=== PATIENT | male | born 1960 | race Caucasian/White ===

== ENCOUNTER 2019-06-23 08:30 | Inpatient (IN) | payer OTHER ==
[~2019-06-23] VITALS: Ht 170.2 cm; Wt 64.9 kg
[2019-06-23 08:33] VITALS: BP 127/73
[2019-06-23] MEDS ORDERED: NACL 0.9% 500 ML IV SCH (08:54)
[2019-06-23] MEDS ORDERED: LISI10TA11 PO (08:55)
[2019-06-23] MEDS ORDERED: GUAI-646 PO (08:55)
[2019-06-23] MEDS ORDERED: SULF-59 PO (08:55)
[2019-06-23] MEDS ORDERED: METF1TAB34 PO (08:55)
[2019-06-23] MEDS ORDERED: GLIP10TA3 PO (08:55)
[2019-06-23] MEDS ORDERED: SIMV10TA1 PO (08:55)
[2019-06-23] MEDS ORDERED: METF850T PO (08:55)
--- NOTE | 2019-06-23 08:56 | NUR ---
Patient ambulated to bed 10. RN evaluating patient at bedside.
--- NOTE | 2019-06-23 09:02 | NUR ---
Dr. Waller evaluating patient at bedside.
--- NOTE | 2019-06-23 09:18 | NUR ---
automotive refinish technician at bedside.
[2019-06-23 09:33] LABS: BASOPHILS # (AUTO) 0.1 K/uL (0.00-0.22); BASOPHILS % (AUTO) 0.7 % (0.0-2.0); EOSINOPHILS % (AUTO) 0.3 % (0.0-4.0); HEMATOCRIT 32.8 % (36-52); HEMOGLOBIN 10.9 g/dL (12.0-18.0); LYMPHOCYTES # (AUTO) 1.1 K/uL (2.0-11.5); LYMPHOCYTES % (AUTO) 10.6 % (20.5-51.1); MEAN CORPUSCULAR HEMOGLOBIN 26 pg (27-31); MEAN CORPUSCULAR HGB CONC 33 g/dL (33-37); MEAN CORPUSCULAR VOLUME 78.8 fL (80-94); MONOCYTES # (AUTO) 1.7 K/uL (0.8-1.0); MONOCYTES % (AUTO) 16.1 % (1.7-9.3); NEUTROPHILS # (AUTO) 7.8 K/uL (1.8-7.7); NEUTROPHILS % (AUTO) 72.3 % (42.2-75.2); PLATELET COUNT (AUTO) 420 K/uL (140-450); RED BLOOD CELL COUNT(AUTO) 4.16 MIL/uL (4.20-6.10); WHITE BLOOD COUNT (AUTO) 10.8 K/uL (4.8-10.8)
--- NOTE | 2019-06-23 09:37 | NUR ---
C/O LEFT SIDED CHEST PAIN, LEFT UPPER BACK PAIN X 2 DAYS. UNPROVOKED. C/O OF NAUSEA, DIZZINESS, AND LETHARGY. RIGHT SECOND DIGIT TIP BLACKENED DISCOLORATION. <3 SECS CAP REFILL. PATIENT ADMITS TO BEING NONCOMPLIANT WITH TAKING MEDICATION.
[2019-06-23 09:45] LABS: PROTHROMBIN TIME 10.8 secs (10.8-13.4)
[2019-06-23 09:55] LABS: ANION GAP 10.4 (8-16); CARBON DIOXIDE 28.8 mmol/L (21-32); CREATININE 0.8 mg/dL (0.7-1.3); POTASSIUM 4.2 mmol/L (3.5-5.1)
[2019-06-23 10:18] LABS: ALBUMIN 2.4 g/dL (3.4-5.0); TOTAL BILIRUBIN 0.5 mg/dL (0.0-1.0)
[2019-06-23] MEDS ORDERED: PIPERACILLIN/TAZOBACTAM 3.375 GM in DEXTROSE 5% 50 ML IV ONE (11:00)
[2019-06-23] MEDS ORDERED: PIPERACILLIN/TAZOBACTAM 3.375 GM VIAL IV ONE (11:46)
[2019-06-23] MEDS ORDERED: ASPIRIN 81 MG TAB.CHEW PO ONE (12:05)
[2019-06-23 12:17] LABS: APPEARANCE,URINE CLEAR (CLEAR); BILIRUBIN,URINE NEGATIVE (NEGATIVE); BLOOD, URINE NEGATIVE (NEGATIVE); COLOR,URINE YELLOW (YELLOW); LEUKOCYTE ESTERASE ,URINE NEGATIVE (NEGATIVE); NITRITE, URINE NEGATIVE (NEGATIVE); UGLUCOSE NEGATIVE (NEGATIVE)
--- NOTE | 2019-06-23 12:22 | NUR ---
CT W CONTRAST CONSENT SIGNED BY PT---CT AWARE
--- NOTE | 2019-06-23 12:57 | NUR ---
PT BACK FROM CT
[2019-06-23 13:00] VITALS: BP 156/92
--- NOTE | 2019-06-23 13:00 | NUR ---
RECEIVED ENDORSEMENT FROM ED NURSE [facility]. PATIENT IS AAOX4, MAORI SPEAKING. PATIENT AMBULATED TO BED. RESPIRATIONS ARE EVEN AND UNLABORED ON ROOM AIR. PATIENT DENIES ANY PAIN AT THIS TIME. RIGHT AC 18G IV INTACT AND SL. PLAN OF CARE WAS REVIEWED WITH PATIENT, PATIENT VERBALIZED UNDERSTANDING. SAFETY MEASURES IN PLACE, CALL LIGHT WITHIN REACH. ASKED [facility] TO TAKE A PIC OF OPEN WOUND, [facility] SAID HE WOULD BE BACK TO TAKE IT. CHARGE NURSE KAROL IS AWARE.
--- NOTE | 2019-06-23 13:17 | NUR ---
Pt report given to KYM MARINELLI. Transfer of care at this time.
--- NOTE | 2019-06-23 15:20 | NUR ---
PATIENT RESTING IN BED. FAMILY IS PRESENT AT THE BEDSIDE. NO OTHER NEEDS AT THIS TIME.
[2019-06-23 16:00] VITALS: BP 156/85
[2019-06-23] MEDS ORDERED: VANCOMYCIN PER PHARMACY MC PRN (16:05)
--- NOTE | 2019-06-23 16:12 | NUR ---
PER ER, PICTURE WAS TAKEN THERE. WILL RETAKE.
--- NOTE | 2019-06-23 16:30 | NUR ---
WOUND PHOTO TAKEN. PATIENT IS RESTING NO OTHER NEEDS AT THIS TIME. DENIES ANY PAIN AT THIS TIME, WILL CONTINUE TO MONITOR.
[2019-06-23] MEDS: NACL 0.45% 1,000 ML IV SCH (17:06)
--- NOTE | 2019-06-23 17:06 | NUR ---
ADMINISTERED SCHEDULED MEDICATIONS. PATIENT TOLERATED WELL. NO OTHER NEEDS AT THIS TIME, WILL CONTINUE TO MONITOR.
[2019-06-23] MEDS: VANCOMYCIN 1,000 MG in DEXTROSE 5% 250 ML IV SCH (17:07)
--- NOTE | 2019-06-23 19:28 | NUR ---
ENDORSED TO GIS COORDINATOR NURSE ZAIRE FOR CONTINUITY OF CARE. PATIENT IS STABLE AT THIS TIME.
--- NOTE | 2019-06-23 19:28 | NUR ---
RECIEVED PT .AAOX4 ,NID , IV SITE INTACT AND PATENT , PLAN OF CARE DISCUSSED AND VERBALIZE UNDERSTANDING , BED IN LOW POSITION , CALL LIGHT WITHIN REACH , SIDERAILS UP X2 , RELATIVES AT BED SIDE , NO COMPLAIN MADE AT THIS TIME , O2 SAT 96%. WILL CONT. TO MONITOR.
[2019-06-23 20:00] VITALS: BP 122/80
[2019-06-23] MEDS: BLOOD GLUCOSE MONITORING 1 DEV DEV FS SCH (21:00)
--- NOTE | 2019-06-23 22:00 | NUR ---
MADE ROUNDS , RESP. EVEN AND UNLABORED , NO COMPLAIN MADE AT THIS TIME. CALL LIGHT WITHIN REACH.
[2019-06-23] MEDS: PIPERACILLIN/TAZOBACTAM 3.375 GM in DEXTROSE 5% 50 ML IV SCH (22:08)
[2019-06-24] VITALS: BP 125/82
--- NOTE | 2019-06-24 | NUR ---
MADE ROUNDS , RESP. EVEN AND UNLABORED , NO COMPLAIN MADE AT THIS TIME , CALL LIGHT WITHIN REACH.
[2019-06-24 04:00] VITALS: BP 122/80
--- NOTE | 2019-06-24 04:00 | NUR ---
MADE ROUNDS , RESP EVEN AND UNLABORED , NO COMPLAIN MADE , CALL LIGHT WITHIN REACH.
[2019-06-24] MEDS: NACL 0.45% 1,000 ML IV SCH ×3 (05:25→18:45)
[2019-06-24] MEDS: VANCOMYCIN 1,000 MG in DEXTROSE 5% 250 ML IV SCH ×2 (05:44→18:25)
[2019-06-24] MEDS: BLOOD GLUCOSE MONITORING 1 DEV DEV FS SCH ×4 (06:52→21:24)
--- NOTE | 2019-06-24 07:00 | NUR ---
ENDORSED TO AM SHIFT WITH STABLE CONDITION , STILL FOR SPUTUM COLLECTION.
[2019-06-24] MEDS: PIPERACILLIN/TAZOBACTAM 3.375 GM in DEXTROSE 5% 50 ML IV SCH ×6 (07:53→23:52)
[2019-06-24 08:00] VITALS: BP 139/79
--- NOTE | 2019-06-24 08:49 | NUR ---
PATIENT HAS BEEN SCREENED AND CATEGORIZED HIGH NUTRITION RISK. PATIENT WILL BE SEEN WITHIN 1-2 DAYS OF ADMISSION. 06/24/19-06/25/[address]
--- NOTE | 2019-06-24 09:00 | NUR ---
PATIENT ABLE TO COUGH UP PHLEGM FOR AFB SPUTUM SMEAR. AFB SPUTUM X1 COLLECTED AT THIS TIME, 2 MORE REMAINING, DAILY PER MD ORDERS.
[2019-06-24 12:00] VITALS: BP 162/91
[2019-06-24] MEDS: INSULIN LISPRO SLIDING SCALE 100 UNITS/ML VIAL SUBQ PRN ×3 (12:56→21:27)
--- NOTE | 2019-06-24 12:59 | NUR ---
PATIENT LYING DOWN IN BED WATCHING TV. NO DISTRESS NOTED. DENIES ANY PAIN. SCHEDULED MEDICATIONS DUE GIVEN. WILL CONTINUE TO MONITOR.
[2019-06-24] MEDS ORDERED: LISINOPRIL 10 MG TAB PO SCH (13:02)
--- NOTE | 2019-06-24 14:00 | NUR ---
CALLED DR VEGA'S OFFICE, , SPOKE TO JEROD, FOLLOW-UP APPOINTMENT MADE ON 07/03/19 AT 1PM AT [address] [place] [id number]. COPY OF APPOINTMENT GIVEN TO PATIENT, VERBALIZED UNDERSTANDING.
--- NOTE | 2019-06-24 14:18 | NUR ---
SCHEDULED MEDICATIONS DUE GIVEN. CONDITION UNCHANGED. WILL CONTINUE TO MONITOR.
--- NOTE | 2019-06-24 15:56 | NUR ---
06/24/19 RD INITIAL ASSESSMENT COMPLETED PLEASE REFER TO NUTRITION ASSESSMENT UNDER CARE ACTIVITY FOR ESTIMATED NUTRITIONAL NEEDS. 1. [facility] TOLERATED 2. PROVIDED NURSE THE [facility] HANDOUT TO PROVIDE TO PATIENT 3. RD TO FOLLOW-UP 3-5 DAYS, MODERATE RISK LUIZ [address]
[2019-06-24 16:00] VITALS: BP 133/74
--- NOTE | 2019-06-24 17:26 | NUR ---
SCHEDULED MEDICATIONS DUE GIVEN. CONDITION UNCHANGED. WILL CONTINUE TO MONITOR.
--- NOTE | 2019-06-24 18:25 | NUR ---
PATIENT AMBULATED TO BATHROOM AND BACK TO BED. SCHEDULED MEDICATIONS DUE GIVEN. WILL CONTINUE TO MONITOR.
--- NOTE | 2019-06-24 19:32 | NUR ---
GAVE REPORT TO LAND MANAGEMENT SUPERVISOR NURSE FOR CONTINUITY OF CARE. PATIENT IN STABLE CONDITION.
--- NOTE | 2019-06-24 19:33 | NUR ---
RECEIVED REPORT FROM AM NURSE. PT SITTING UP IN BED, AWAKE, ALERT AND ORIENTED. VISIBLE CHEST RISE AND FALL ON ROOM AIR WITH NO NOTED DISTRESS. LEFT FOREARM 18G INTACT AND INFUSING WELL. PT ON AIRBORN PRECAUTIONS. PT FAMILY AT BEDSIDE. FAMILY EDUCATED ON AIRBORN PRECAUTIONS. PT HAS NON-INTACT SKIN, S/P DEBRIDEMENT ON RIGHT INDEX FINGER. PT AMBULATORY, SAFETY MEASURES IN PLACE. CALL LIGHT WITHIN REACH.
[2019-06-24 20:20] VITALS: BP 121/70
--- NOTE | 2019-06-24 21:27 | NUR ---
BLOOD GLUCOSE 165, PT GIVEN INSULIN ACCORDING TO SLIDING SCALE. NO C/O DISCOMFORT. WILL CONTINUE TO MONITOR.
[2019-06-25] VITALS: BP 126/71
--- NOTE | 2019-06-25 | NUR ---
VITALS TAKEN. PT SLEEPING BUT EASILY AWAKEN BY VOICE. BREATHING EQUAL AND UNLABORED. DENIES PAIN, NO VISIBLE SIGNS OF DISTRESS. CALL LIGHT WITHIN REACH.
--- NOTE | 2019-06-25 02:30 | NUR ---
ROUNDED ON PT. PT SLEEPING, VISIBLE CHEST RISE AND FALL. NO VISIBLE SIGNS OF DISTRESS.
[2019-06-25] MEDS: VANCOMYCIN 1,000 MG in DEXTROSE 5% 250 ML IV SCH (04:18)
--- NOTE | 2019-06-25 04:18 | NUR ---
VITALS TAKEN. ANTIBIOTICS HUNG. PT AWAKE IN BED. PT C/O BEING COLD, TEMPERATURE CHANGED IN ROOM FOR PT COMFORT. NO VISIBLE SIGNS OF DISTRESS. CALL LIGHT WITHIN REACH.
[2019-06-25 04:30] VITALS: BP 149/86
[2019-06-25] MEDS: PIPERACILLIN/TAZOBACTAM 3.375 GM in DEXTROSE 5% 50 ML IV SCH ×3 (05:55→19:51)
--- NOTE | 2019-06-25 05:55 | NUR ---
ANTIBIOTICS HUNG. BLOOD GLUCOSE LEVEL 153, ADMINISTERED INSULIN PER SLIDING SCALE. PT AWAKE IN BED WATCHING TV. BREATHING EQUAL AND UNLABORED. PROVIDED WATER PER REQUEST. NO C/O DISCOMFORT. WILL ENDORSE TO AM NURSE.
[2019-06-25] MEDS: INSULIN LISPRO SLIDING SCALE 100 UNITS/ML VIAL SUBQ PRN ×3 (06:08→20:16)
[2019-06-25] MEDS: BLOOD GLUCOSE MONITORING 1 DEV DEV FS SCH ×4 (06:49→20:12)
--- NOTE | 2019-06-25 07:20 | NUR ---
RECEIVED BEDSIDE REPORT FROM EXCAVATOR BACKHOE OPERATOR NURSE. PATIENT IS AWAKE, ALERT AND ORIENTEDX4. NO SIGNS OF DISTRESS ON RA. R INDEX FINGER HAS S/P DEBRIDEMENT. PATIENT IS AMBULATORY. CONTINENT. ABLE TO MAKE NEEDS KNOWN. AIRBORNE PRECAUTIONS TO RULE OUT TB. L FA 18G INFUSING 1/2NS AT 75. CLEAN, DRY AND INTACT. BED IN LOW POSITION. CALL LIGHT WITHIN REACH. WILL CONTINUE TO MONITOR THE PATIENT
[2019-06-25 08:00] VITALS: BP 114/74
[2019-06-25] MEDS: NACL 0.45% 1,000 ML IV SCH ×2 (09:45→21:25)
[2019-06-25] MEDS: LISINOPRIL 10 MG TAB PO SCH (09:45)
--- NOTE | 2019-06-25 09:51 | NUR ---
ADMINISTERED MEDS. EDUCATED ON SIDE EFFECTS. PATIENT TOLERATED WELL. WILL CONTINUE TO MONITOR THE PATIENT
--- NOTE | 2019-06-25 11:27 | NUR ---
IV INFILTRATED, WILL PUT NEW IV.
[2019-06-25 12:00] VITALS: BP 139/73
--- NOTE | 2019-06-25 13:10 | NUR ---
NEW IV ON R AC 22G. CLEAN, DRY AND INTACT
[2019-06-25] MEDS: metFORMIN 850 MG TAB PO SCH ×2 (13:14→17:47)
--- NOTE | 2019-06-25 13:20 | NUR ---
ADMINISTERED MEDS. PATIENT TOLERATED WELL. EDUCATED ON SIDE EFFECTS. WILL CONTINUE TO MONITOR
--- NOTE | 2019-06-25 14:36 | NUR ---
FAMILY AT BEDSIDE. PATIENT IN NO DISTRESS. WILL CONTINUE TO MONITOR
[2019-06-25 16:00] VITALS: BP 132/74
--- NOTE | 2019-06-25 16:09 | NUR ---
PATIENT IN NO DISTRESS. FAMILY AT BEDSIDE. WILL CONTINUE TO MONITOR THE PATIENT
[2019-06-25] MEDS: VANCOMYCIN 1,250 MG in DEXTROSE 5% 250 ML IV SCH (17:47)
[2019-06-25] MEDS: glipiZIDE 10 MG TAB PO SCH (17:48)
--- NOTE | 2019-06-25 17:53 | NUR ---
ADMINISTERED MEDS. PATIENT TOLERATED WELL. EDUCATED ON SIDE EFFECTS. WILL CONTINUE TO MONITOR THE PATIENT
--- NOTE | 2019-06-25 19:20 | NUR ---
GAVE BEDSIDE REPORT TO ADULT SERVICES LIBRARIAN NURSE. PATIENT ENDORSED IN STABLE CONDITION. ENDORSED ZOSYN TO ADULT SERVICES LIBRARIAN NURSE. PATIENT HAS VANCO STILL RUNNING
--- NOTE | 2019-06-25 19:21 | NUR ---
REPORT RECEIVED FROM AM NURSE AT BEDSIDE. PT IN STABLE CONDITION. AAOX4. INTRODUCED SELF TO PT. BOARD UPDATED. NO COMPLAINTS OF PAIN. NO SOB. AFEBRILE. PT IS AMBULATORY. PT IS ON AIRBORNE PRECAUTION FOR POSSIBLE TB. IV SITE R FA 22G RUNNING 1/2 NS@75ML/HR PATENT AND INTACT. SKIN WARM, DRY, AND INTACT WITH NO OPEN WOUNDS. BED LOCKED IN LOW POSITION. CALL DOSHI WITHIN REACH. SAFETY PRECAUTION IN PLACE. ALL NEEDS MET AT THIS TIME.
--- NOTE | 2019-06-25 19:51 | NUR ---
1800 ZOSYN HUNG AND RUNNING FOR AM SHIFT DUE TO NEW IV INSERTION AND VANCO STILL RUNNING. PT TOLERATING WELL.
[2019-06-25 20:00] VITALS: BP 133/75
[2019-06-25] MEDS: SIMVASTATIN 10 MG TAB PO SCH (20:05)
--- NOTE | 2019-06-25 20:05 | NUR ---
ZOCOR GIVEN PO. PT TOLERATED WELL. BS 160. 2 UNITS OF HUMALOG GIVEN.
--- NOTE | 2019-06-25 21:30 | NUR ---
PT OUT OF BED BRUSHING HIS TEETH. NO S/S OF DISTRESS NOTED. WILL CONTINUE TO MONITOR.
--- NOTE | 2019-06-25 23:00 | NUR ---
PT IN BED WATCHING TV. NO S/S OF DISTRESS NOTED.
[2019-06-26] VITALS: BP 133/75
[2019-06-26] MEDS: PIPERACILLIN/TAZOBACTAM 3.375 GM in DEXTROSE 5% 50 ML IV SCH ×3 (00:14→12:14)
--- NOTE | 2019-06-26 00:14 | NUR ---
HARRY HUNG AND RUNNING. PT TOLERATING WELL.
--- NOTE | 2019-06-26 02:10 | NUR ---
PT SLEEPING COMFORTABLY IN BED. NO S/S OF DISTRESS NOTED. NO COMPLAINTS OF PAIN. NO SOB. AFEBRILE. WILL CONTINUE TO MONITOR.
--- NOTE | 2019-06-26 03:50 | NUR ---
PT SLEEPING COMFORTABLY IN BED. NO S/S OF DISTRESS NOTED. NO COMPLAINTS OF PAIN. NO SOB. AFEBRILE. WILL CONTINUE TO MONITOR.
[2019-06-26] MEDS: VANCOMYCIN 1,250 MG in DEXTROSE 5% 250 ML IV SCH ×2 (04:32→16:15)
--- NOTE | 2019-06-26 05:50 | NUR ---
AFB SMEAR COLLECTED.
--- NOTE | 2019-06-26 06:20 | NUR ---
PT AWAKE AND ALERT WATCHING TV. NO S/S OF DISTRESS NOTED. WILL CONTINUE TO MONITOR.
[2019-06-26] MEDS: BLOOD GLUCOSE MONITORING 1 DEV DEV FS SCH ×4 (06:50→21:00)
--- NOTE | 2019-06-26 07:10 | NUR ---
RECEIVED REPORT FROM DECORATING INSPECTOR NURSE. PT AAOX4, WATCHING TV. NO C/O PAIN AT THIS TIME. LUNG SOUNDS CLEAR, RESPIRATIONS EVEN AND UNLABORED ON RA. PT ON AIRBORNE PRECAUTIONS TO R/O TB. IV ON RT FA 22 GA RUNNING IVF PER ORDER. NOTED WOUND TO LT POINTER FINGER, BLACK WOUND BED, NO DRAINAGE, LTA, S/P DEBRIDEMENT. SKIN IS WARM TO TOUCH. REVIEWED POC WITH PT, PT VERBALIZED UNDERSTANDING. Addendum: 06/26/19 at 1507 by Noy De La Cruz RN CLARIFICATION WOUND ON RT FINGER
[2019-06-26 08:00] VITALS: BP 132/69
[2019-06-26] MEDS: metFORMIN 850 MG TAB PO SCH ×3 (09:08→16:13)
[2019-06-26] MEDS: glipiZIDE 10 MG TAB PO SCH ×2 (09:08→16:13)
[2019-06-26] MEDS: LISINOPRIL 10 MG TAB PO SCH (09:08)
--- NOTE | 2019-06-26 09:08 | NUR ---
PT GIVEN MEDICATIONS PER ORDER. NO C/O OF DISTRESS AT THIS TIME, NO SIGNS OF SOB. FAMILY AT BEDSIDE.
[2019-06-26] MEDS: NACL 0.45% 1,000 ML IV SCH ×2 (10:45→12:16)
--- NOTE | 2019-06-26 12:14 | NUR ---
STARTED IV ABX. FAMILY AT BEDSIDE, ANSWERED AND CLARIFIED ALL QUESTIONS.
[2019-06-26 13:24] LABS: ANION GAP 11.6 (8-16); CARBON DIOXIDE 28.4 mmol/L (21-32); CREATININE 0.9 mg/dL (0.7-1.3)
[2019-06-26 16:00] VITALS: BP 139/74
--- NOTE | 2019-06-26 16:13 | NUR ---
PT REFUSED ORAL ANTI-DIABETIC MEDICATIONS D/T BS 64. NO SIGNS OF HYPOGLYCEMIA. PT STATES "SOMETIMES TAKING MEDICATION WILL LOWER MY BLOOD SUGAR. WHEN IT'S LOW I DON'T TAKE IT AT HOME." RESPIRATIONS EVEN AND UNLABORED ON RA, NO C/O PAIN.
[2019-06-26] MEDS ORDERED: ACETAMINOPHEN 325 MG TAB PO PRN (18:30)
--- NOTE | 2019-06-26 18:41 | NUR ---
PT C/O NAUSEA AND VOMITING. ORAL TEMPERATURE CHECKED AT 101. RECEIVED ORDERS FROM DR. VALENTE, PT GIVEN ZOFRAN AND TYLENOL. WILL REASSESS TEMPERATURE IN 1 HOUR.
[2019-06-26] MEDS: ONDANSETRON 4 MG TAB PO PRN (18:42)
--- NOTE | 2019-06-26 18:45 | NUR ---
PROVIDED WASHCLOTH TO FOREHEAD AND ICE PACKS TO UNDERARMS. WILL CONTINUE TO MONITOR.
--- NOTE | 2019-06-26 18:50 | NUR ---
FAMILY AND PATIENT NOTIFIED REGARDING POSITIVE AFB SMEAR.
--- NOTE | 2019-06-26 19:37 | NUR ---
PT HAS FEVER, PROVIDED COOLING MEASURES TO PT. ENDORSED PT TO SUPERVISOR SPECIAL SERVICES NURSE.
--- NOTE | 2019-06-26 19:41 | NUR ---
CHECKED ORAL TEMPERATURE, PT HAS FEVER OF 101.4. CONTINUED WITH COOLING MEASURES.
--- NOTE | 2019-06-26 19:41 | NUR ---
RECEIVED PT FROM AM NURSE. PT AWAKE, ALERT AND ORIENTED. ABLE TO ANSWER QUESTIONS AND FOLLOW COMMANDS. VISIBLE CHEST RISE AND FALL ON ROOM AIR WITH NO NOTED DISTRESS. RIGHT FOREARM 22G INTACT AND INFUSING WELL. ON AIRBORNE PRECAUTIONS. FAMILY AT BEDSIDE. EXPLAINED TO FAMILY THAT ANTIBIOTIC THERAPY WILL START IN THE MORNING. SAFETY PRECAUTIONS IN PLACE. CALL LIGHT WITHIN REACH. WILL CONTINUE TO MONITOR.
--- NOTE | 2019-06-26 20:00 | NUR ---
TEMP REASSESSED 97.9 ORALLY AT THIS TIME
[2019-06-26] MEDS: SIMVASTATIN 10 MG TAB PO SCH (22:01)
[2019-06-27] VITALS: BP 134/76
--- NOTE | 2019-06-27 | NUR ---
VITALS TAKEN. PT SLEEPING BUT EASILY AWAKEN. BREATHING EQUAL AND UNLABORED. NO C/O DISCOMFORT. CALL LIGHT WITHIN REACH.
--- NOTE | 2019-06-27 04:05 | NUR ---
ROUNDED ON PT. PT SLEEPING, VISIBLE CHEST RISE AND FALL ON ROOM AIR. NO VISIBLE SIGNS OF DISTRESS.
[2019-06-27] MEDS: NACL 0.45% 1,000 ML IV SCH (05:00)
[2019-06-27] MEDS: DEXTROSE 50% 50 ML SYR IVP PRN ×3 (06:15→19:01)
--- NOTE | 2019-06-27 06:15 | NUR ---
D50 GIVEN IVP FOR BLOOD GLUCOSE OF 59. WILL REASSESS GLUCOSE LEVEL.
[2019-06-27] MEDS: BLOOD GLUCOSE MONITORING 1 DEV DEV FS SCH ×4 (06:21→20:01)
--- NOTE | 2019-06-27 07:05 | NUR ---
BLOOD GLUCOSE 143 AT THIS TIME.
--- NOTE | 2019-06-27 07:15 | NUR ---
RECEIVED BEDSIDE REPORT FROM NURSE AIDE EVALUATOR NURSE, PT IS AWAKE AND ALERT SITTING UP IN BED, NO S/S OF ANY ACUTE DISTRESS NOTED, PT IS ON ROOM AIR. SKIN INTACT ASIDE FROM THE R HAND INDEX FINGER WHICH IS S/P DEBRIDEMENT AND IS FIRE CHIEF. IV SITE IS IN THE R FA 22 G, INFUSING 1/2 NS 75 ML/HR. AIRBORNE ISOLATION IS IN PLACE FOR TB. CALL LIGHT IS WITHIN REACH, WILL CONTINUE MONITORING.
[2019-06-27 08:00] VITALS: BP 144/82
[2019-06-27] MEDS: metFORMIN 850 MG TAB PO SCH ×3 (09:43→17:00)
[2019-06-27] MEDS: ISONIAZID 100 MG TAB PO SCH (09:43)
[2019-06-27] MEDS: glipiZIDE 10 MG TAB PO SCH (09:44)
[2019-06-27] MEDS: LISINOPRIL 10 MG TAB PO SCH (09:44)
[2019-06-27] MEDS: PYRIDOXINE 50 MG TAB PO SCH (09:44)
[2019-06-27] MEDS: RIFAMPIN 300 MG CAP PO SCH (09:44)
[2019-06-27] MEDS: ETHAMBUTOL 400 MG TAB PO SCH (09:45)
[2019-06-27] MEDS: PYRAZINAMIDE 500 MG TAB PO SCH (09:45)
--- NOTE | 2019-06-27 09:51 | NUR ---
AM MEDICATIONS ADMINISTERED, PT TOLERATED WELL. FAMILY IS AT BEDSIDE.
--- NOTE | 2019-06-27 10:13 | NUR ---
PT'S FAMILY IS EAGER TO TALK WITH A DOCTOR TO FILL THEM IN ON AN UPDATE. DR DRE ARTEAGA, HE SPOKE WITH PT'S DAUGHTER KENN ON THE PHONE, UPDATED HER ON PT'S CONDITION AND ANSWERED QUESTIONS ABOUT DIABETES MEDICATIONS. DAUGHTER KENN MENTIONED THAT PT IS NOT EMPLOYED ANYMORE, AND THEY ARE INTERESTED IN LEARNING ABOUT COMMUNITY RESOURCES FOR THE PT. WILL NOTIFY CAILIN. Addendum: 06/27/19 at 1058 by Maria G Lomax RN CAILIN STALLINGS NOTIFIED ABOUT FAMILY'S REQUEST FOR COMMUNITY RESOURCES.
--- NOTE | 2019-06-27 10:55 | NUR ---
PT TAKING A SHOWER AT THIS TIME. FAMILY IS VISITING IN THE ROOM. BED LINENS CHANGED.
--- NOTE | 2019-06-27 14:56 | NUR ---
PT IS AWAKE AND ALERT, SITTING UP IN BED AND WATCHING TV. AIRBORNE ISOLATION IS MAINTAINED. CONTINUING TO MONITOR PT.
[2019-06-27 16:00] VITALS: BP 137/82
--- NOTE | 2019-06-27 16:00 | NUR ---
PT'S BLOOD GLUCOSE IS 36 AT THIS TIME. PT REPORTS FEELING TIRED, NO APPARENT OTHER SYMPTOMS NOTED. DEXTROSE IV INJECTION GIVEN PER PROTOCOL, AND PT DRANK 2 BOXES OF OJ. WILL RECHECK BLOOD GLUCOSE IN 20 MINS. STAT GLUCOSE LAB DRAW ORDERED PER PROTOCOL.
--- NOTE | 2019-06-27 16:19 | NUR ---
BLOOD GLUCOSE IS 133 AT THIS TIME
--- NOTE | 2019-06-27 17:12 | NUR ---
HOLDING THE SCHEDULED METFORMIN AT THIS TIME, SINCE PT'S BLOOD GLUCOSE DROPPED TOO LOW AFTER ADMINISTERING THE METFORMIN EARLIER BEFORE LUNCH TIME.
[2019-06-27 18:38] LABS: ANION GAP 12.2 (8-16); CREATININE 0.8 mg/dL (0.7-1.3); POTASSIUM 4.2 mmol/L (3.5-5.1)
--- NOTE | 2019-06-27 19:00 | NUR ---
PT C/O NAUSEA AND FEELING TIRED, BLOOD GLUCOSE CHECKED, 48. DEXTROSE IV PUSH GIVEN PER PROTOCOL AND PT GIVEN 2 JUICE BOXES TO DRINK. PT ATE ABOUT 90% OF HIS DINNER. WILL ENDORSE TO TOP COLLAR BASTER NURSE TO RECHECK BLOOD GLUCOSE.
[2019-06-27] MEDS: ONDANSETRON 4 MG TAB PO PRN (19:06)
--- NOTE | 2019-06-27 19:10 | NUR ---
RECEIVED PT FROM AM NURSE. PT ON TB ISOL FOR AFT POSITIVE. PT AWAKE, ALERT ORIENTED X 4, AMBULATORY. INFORMED VISITOR ON ISOLATION PROCEDURES PT HAS A VISITOR, URBI. GIVEN AIRBORNE MASK. PT W/ 1/2 NS AT 75 ML/HR INFUSING WELL ON R FA. G 22. POC REVIEWED. PLACED IN LOW BED. CALL LIGHT W/IN REACH. AIRBORNE ISOLATION PROTOCOL MAINTAINED
--- NOTE | 2019-06-27 20:32 | NUR ---
CALLED DR ERICKSON PT'S BLOOD SUGAR 135 MG/ DL.AWAITING FOR STANDING ORDERS FOR IV IN CASE BLOOD GLUCOSE DROP. PT HAD HX OF SEVERE DROP OF BS TWICE Addendum: 06/27/19 at 2053 by Emily Ozuna RN CALLED DR LANE FOR DR. ERICKSON Addendum: 06/28/19 at 0715 by Emily Ozuna RN AMEND TO DR. GARDUNO FOR DR. ERICKSON
--- NOTE | 2019-06-27 20:48 | NUR ---
DR. ERICKSON CALLED W/ NEW ORDERS TO CHANGE IVF TO D51/2 NS AT 75 ML/HR Addendum: 06/27/19 at 2054 by Emily Ozuna RN AMEND TO DR. LANE FOR DR. ERICKSON Addendum: 06/28/19 at 15 by Emily Ozuna RN AMEND TO DR. GARDUNO FOR DR. ERICKSON
[2019-06-27] MEDS: DEXT 5% / NACL 0.45% 1,000 ML IV SCH (21:21)
[2019-06-27] MEDS: SIMVASTATIN 10 MG TAB PO SCH (21:21)
--- NOTE | 2019-06-27 21:21 | NUR ---
CHANGED IV TO D51/2 NS AT 75 ML/HR PER DR. LANE FOR DR. ERICKSON
[2019-06-28] VITALS: BP 135/85
--- NOTE | 2019-06-28 | NUR ---
CHECKED PT; COMFORTABLE NO COMPLAINTS AT THIS TIME
--- NOTE | 2019-06-28 02:15 | NUR ---
PT SLEEPING AT THIS TIME, PT WENT TO THE COMFORT ROOM STEADY GAIT; NO COMPLAINTS AT THIS TIME
--- NOTE | 2019-06-28 04:17 | NUR ---
CHECKED ON PT PT HAS NO COMPLAINTS. AFEBRILE; NOT IN PAIN AND NOT IN RESPIRATORY DISTRESS
--- NOTE | 2019-06-28 06:28 | NUR ---
PT BLOOD SUGAR CHECK 127 MG/DL. PT DRANK JUICE, 2 PACKS, 120 ML PER PACK. PT AWAKE, ALERT ORIENTED X 4, NO SOB, NO COMPLAINTS AT THIS TIME. FOR MONITORING OF BLOOD SUGAR. WILL ENDORSE TO NEXT SHIFT Addendum: 06/28/19 at 0714 by Emily Ozuna RN 103 MG/.DL AND NOT 127
[2019-06-28] MEDS: BLOOD GLUCOSE MONITORING 1 DEV DEV FS SCH ×4 (06:30→21:07)
--- NOTE | 2019-06-28 06:37 | NUR ---
DR LANE FOR DR. ERICKSON ORDERED TO HOLD IVANNAE. WILL INFORM NEXT SHIFT Addendum: 06/28/19 at 0715 by Emily Ozuna RN DR. SHAAN ERICKSON
--- NOTE | 2019-06-28 07:25 | NUR ---
RECEIVED REPORT FROM SLAB DEPILER OPERATOR NURSE, PT IS AWAKE AND ALERT, NO S/S OF ACUTE DISTRESS NOTED, PT ON ROOM AIR, SKIN INTACT ASIDE FROM THE R INDEX FINGER SCARRING S/O DEBRIDEMENT (BIOLOGY LECTURER). IV SITE IS IN THE R FA 22 G, INFUSING D5 1/2 NS 75 ML/HR. CALL LIGHT IS WITHIN REACH, UNIVERSAL FALL PRECAUTIONS IN PLACE. WILL CONTINUE TO MONITOR.
[2019-06-28 08:00] VITALS: BP 128/75
[2019-06-28] MEDS ORDERED: glipiZIDE ER 5 MG TABER PO SCH (08:00)
[2019-06-28] MEDS: metFORMIN 850 MG TAB PO SCH ×3 (08:00→17:00)
[2019-06-28] MEDS: PYRIDOXINE 50 MG TAB PO SCH (08:34)
[2019-06-28] MEDS: LISINOPRIL 10 MG TAB PO SCH (08:34)
[2019-06-28] MEDS: ISONIAZID 100 MG TAB PO SCH (08:34)
[2019-06-28] MEDS: RIFAMPIN 300 MG CAP PO SCH (08:35)
[2019-06-28] MEDS: PYRAZINAMIDE 500 MG TAB PO SCH (08:35)
[2019-06-28] MEDS: ETHAMBUTOL 400 MG TAB PO SCH (08:35)
--- NOTE | 2019-06-28 08:41 | NUR ---
AM MEDS ADMINISTERED PT'S BLOOD GLUCOSE AT THIS TIME IS 74. METFORMIN HELD. WILL GIVE PT BOX OF ORANGE JUICE.
[2019-06-28] MEDS: DEXT 5% / NACL 0.45% 1,000 ML IV SCH (10:49)
--- NOTE | 2019-06-28 12:15 | NUR ---
PT'S BLOOD GLUCOSE IS 97, SCHEDULED METFORMIN HELD. PT EATING LUNCH NOW, PT INSTRUCTED TO EAT MUCH HE CAN FROM HIS TRAY, JUICE BOX PROVIDED.
--- NOTE | 2019-06-28 14:34 | NUR ---
06/28/19 RD FOLLOW UP COMPLETED PLEASE REFER TO NUTRITION ASSESSMENT UNDER CARE ACTIVITY FOR ESTIMATED NUTRITIONAL NEEDS. 1. CONTINUE CCHO 60 G DIET TOLERATED 2. DM DIET EDUCATION WAS PROVIDED DURING PREVIOUS VISIT. PT. DENIES ADDITIONAL QUESTIONS REGARDING DIET EDUCATION. 3. RD TO FOLLOW-UP 3-5 DAYS, MODERATE RISK PARKER BERNAL, RD
--- NOTE | 2019-06-28 15:20 | NUR ---
FAMILY VISITING PT AT BEDSIDE
[2019-06-28 16:00] VITALS: BP 134/77
--- NOTE | 2019-06-28 17:10 | NUR ---
CHANGED PT'S BED LINENS, PROVIDED PT A CLEAN GOWN. FAMILY IS AT BEDSIDE. NO S/S OF ANY DISTRESS SEEN IN PT.
--- NOTE | 2019-06-28 19:25 | NUR ---
PT ENDORSED TO PLEATING SUPERVISOR NURSE IN STABLE CONDITION.
--- NOTE | 2019-06-28 19:26 | NUR ---
RECD. RESTING IN BED, AWAKE, A/OX4. RESPIRATION EVEN AND UNLABORED. LUNGS CLEAR ON BILATERAL AUSCULTATION. STATED HE HAS UNPRODUCTIVE COUGH. 02 SAT - 97% ON ROOM AIR. IV OF D51/2 NS AT 75 ML/HR INFUSING RIGHT FOREARM G22. PLAN OF CARE FOR THE SHIFT DISCUSSED. VERBALIZED UNDERSTANDING. DENIES PAIN 0/10. FAMILY AT THE BEDSIDE.
[2019-06-28] MEDS: SIMVASTATIN 10 MG TAB PO SCH (20:58)
--- NOTE | 2019-06-28 21:07 | NUR ---
DUE PO MEDICATIONS GIVEN. ATE 100% OF SNACK FOR THE NIGHT.
[2019-06-28] MEDS: INSULIN LISPRO SLIDING SCALE 100 UNITS/ML VIAL SUBQ PRN (21:38)
--- NOTE | 2019-06-28 21:41 | NUR ---
Patient's Plan of Care was discussed and reviewed with SHIFT SUPERVISOR MELTING: MADINA SANCHEZ
--- NOTE | 2019-06-28 22:50 | NUR ---
INFORMED PATIENT HAD NO BM SINCE SUNDAY. ORDERED LACTULOSE 15 MG. Q 6 HOURS PRN FOR CONSTIPATION.
[2019-06-28] MEDS: LACTULOSE 20 GM/30 ML UDC PO PRN (23:58)
--- NOTE | 2019-06-28 23:58 | NUR ---
MEDICATED WITH LACTULOSE ORDERED.
[2019-06-29] VITALS: BP 115/77
--- NOTE | 2019-06-29 01:30 | NUR ---
SLEEPING COMFORTABLY IN BED.
--- NOTE | 2019-06-29 04:00 | NUR ---
SLEEPING COMFORTABLY IN BED.
[2019-06-29] MEDS: BLOOD GLUCOSE MONITORING 1 DEV DEV FS SCH ×4 (06:47→20:53)
[2019-06-29] MEDS: INSULIN LISPRO SLIDING SCALE 100 UNITS/ML VIAL SUBQ PRN ×2 (06:50→11:18)
[2019-06-29] MEDS: LACTULOSE 20 GM/30 ML UDC PO PRN (06:56)
--- NOTE | 2019-06-29 06:56 | NUR ---
STILL NO BM YET. MEDICATED AGAIN WITH CEPHULAC 15 MG PO ORDERED.
--- NOTE | 2019-06-29 07:10 | NUR ---
CONDITION REMAIN STABLE. ENDORSED TO AM SHIFT NURSE FOR CONTINUITY OF CARE AND FOLLOW UP IF PT WILL HAVE BM TODAY.
--- NOTE | 2019-06-29 07:11 | NUR ---
RECEIVED BEDSIDE REPORT FROM NIGHT NURSE. PT IN STABLE CONDITION BREATHING UNLABORED. PT HAS OPEN TO AIR RIGHT INDEX FINGER BLACK SCAB AT TIP ON DISTAL END. NO DRAINAGE OR PAIN NOTED. PT IS INFUSING D5 1/2 NS AT 75ML/HR. PT HAS RIGHT FOREARM IV THAT IS ASYMPTOMATIC AND PATENT. ALL SAFETY MEASURES IN PLACE AND CALL LIGHT WITHIN REACH. PT ON AIRBORNE PRECAUTION.
[2019-06-29 08:00] VITALS: BP 127/75
[2019-06-29] MEDS: metFORMIN 850 MG TAB PO SCH ×3 (08:35→16:28)
[2019-06-29] MEDS: ETHAMBUTOL 400 MG TAB PO SCH (08:35)
[2019-06-29] MEDS: ISONIAZID 100 MG TAB PO SCH (08:35)
[2019-06-29] MEDS: LISINOPRIL 10 MG TAB PO SCH (08:35)
[2019-06-29] MEDS: PYRIDOXINE 50 MG TAB PO SCH (08:35)
[2019-06-29] MEDS: RIFAMPIN 300 MG CAP PO SCH (08:36)
[2019-06-29] MEDS: PYRAZINAMIDE 500 MG TAB PO SCH (08:37)
--- NOTE | 2019-06-29 08:39 | NUR ---
ADMINISTERED MEDICATIONS PT RESTING IN BED NO DISTRESS AND NO COMPLAINTS.
--- NOTE | 2019-06-29 10:54 | NUR ---
PT RESTING IN BED NO DISTRESS OR COMPLAINTS OR REQUESTS.
[2019-06-29] MEDS: DEXT 5% / NACL 0.45% 1,000 ML IV SCH ×2 (11:13)
--- NOTE | 2019-06-29 13:00 | NUR ---
PT RESTING IN BED NO REQUESTS OR SIGNS OF DISTRESS.
--- NOTE | 2019-06-29 14:07 | NUR ---
PT RESTING IN BED DENIES ANY REQUEST BREATHING IS UNLABORED.
[2019-06-29 16:00] VITALS: BP 122/70
[2019-06-29] MEDS: ONDANSETRON 4 MG TAB PO PRN (16:29)
--- NOTE | 2019-06-29 16:30 | NUR ---
ADMINISTERED MEDICATIONS INCLUDING ZOFRAN PER PATIENT REQUEST FOR NAUSEA. PT RESTING IN BED WITH FEMALE VISITOR AT BEDSIDE BREATHING UNLABORED NO DISTRESS.
--- NOTE | 2019-06-29 17:50 | NUR ---
PT RESTING IN BED DENIES REQUESTS FOR ANYTHING WITH FAMILY AT BEDSIDE. THEY ALSO DENY ANY REQUESTS.
--- NOTE | 2019-06-29 19:00 | NUR ---
GAVE BEDSIDE REPORT TO NIGHT NURSE PT IN STABLE CONDITION
--- NOTE | 2019-06-29 19:01 | NUR ---
REPORT RECEIVED FROM AM NURSE AT BEDSIDE. PT IN STABLE CONDITION. AAOX4. INTRODUCED SELF TO PT. BOARD UPDATED. NO COMPLAINTS OF PAIN. NO SOB. AFEBRILE. PT IS AMBULATORY. POSITIVE FOR TB. IV SITE R FA 22G RUNNING D5 1/2NS@75ML/HR PATENT AND INTACT. SKIN WARM, DRY, AND NOT INTACT DUE TO WOUND ON THE R INDEX FINGER. BED LOCKED IN LOW POSITION. CALL DOSHI WITHIN REACH. SAFETY PRECAUTION IN PLACE. ALL NEEDS MET AT THIS TIME.
[2019-06-29] MEDS: SIMVASTATIN 10 MG TAB PO SCH (20:47)
--- NOTE | 2019-06-29 20:47 | NUR ---
ZOCOR GIVEN PO. BS 110. NO INSULIN COVERAGE NEEDED. PT TOLERATED WELL.
--- NOTE | 2019-06-29 22:20 | NUR ---
PT IN BED WATCHING TV. NO S/S OF DISTRESS NOTED. WILL CONTINUE TO MONITOR.
[2019-06-30] VITALS: BP 125/71
--- NOTE | 2019-06-30 00:05 | NUR ---
PT SLEEPING COMFORTABLY BUT AROUSABLE. NO S/S OF DISTRESS NOTED. NO COMPLAINTS OF PAIN. NO SOB. AFEBRILE. WILL CONTINUE TO MONITOR.
[2019-06-30] MEDS: DEXT 5% / NACL 0.45% 1,000 ML IV SCH ×2 (02:08→15:37)
--- NOTE | 2019-06-30 02:30 | NUR ---
PT CALLED ME IN SAYING HES FEELING WEAK AND SHAKY, ASKED ME TO CHECK HIS BLOOD SUGAR. BS LEVEL 116. GAVE HIM A SNACK AND HE WENT BACK TO SLEEP.
--- NOTE | 2019-06-30 04:05 | NUR ---
PT SLEEPING COMFORTABLY IN BED. NO S/S OF DISTRESS NOTED. RESPIRATIONS EVEN, UNLABORED, AND WNL. WILL CONTINUE TO MONITOR.
[2019-06-30] MEDS: BLOOD GLUCOSE MONITORING 1 DEV DEV FS SCH ×4 (06:46→20:38)
--- NOTE | 2019-06-30 06:46 | NUR ---
BS 139. NO INSULIN COVERAGE NEEDED.
--- NOTE | 2019-06-30 07:00 | NUR ---
PT IN STABLE CONDITION.
--- NOTE | 2019-06-30 07:15 | NUR ---
RECEIVED BEDSIDE REPORT FROM JEWEL BEARING BROACHER NURSE, PT IS AWAKE AND ALERT, NO S/S OF ANY ACUTE DISTRESS NOTED. AIRBORNE ISOLATION IS IN PLACE. D5 1/2 NS IS INFUSING VIA THE R FA 22 G IV. DEBRIDED R INDEX FINGER IS PHARMACOLOGY TEACHER. CALL LIGHT IS WITHIN REACH, WILL CONTINUE TO MONITOR.
[2019-06-30 08:00] VITALS: BP 123/67
[2019-06-30 08:20] LABS: ANION GAP 13.6 (8-16); CARBON DIOXIDE 26.8 mmol/L (21-32); CREATININE 0.9 mg/dL (0.7-1.3); POTASSIUM 4.4 mmol/L (3.5-5.1); TOTAL BILIRUBIN 0.8 mg/dL (0.0-1.0)
[2019-06-30 08:40] LABS: BASOPHILS % (AUTO) 0.2 % (0.0-2.0); EOSINOPHILS % (AUTO) 0.4 % (0.0-4.0); HEMATOCRIT 30.9 % (36-52); HEMOGLOBIN 10.3 g/dL (12.0-18.0); LYMPHOCYTES # (AUTO) 0.8 K/uL (2.0-11.5); LYMPHOCYTES % (AUTO) 6.2 % (20.5-51.1); MEAN CORPUSCULAR HEMOGLOBIN 26 pg (27-31); MEAN CORPUSCULAR HGB CONC 33 g/dL (33-37); MEAN CORPUSCULAR VOLUME 77.6 fL (80-94); MONOCYTES # (AUTO) 1.5 K/uL (0.8-1.0); NEUTROPHILS # (AUTO) 9.8 K/uL (1.8-7.7); NEUTROPHILS % (AUTO) 81.2 % (42.2-75.2); PLATELET COUNT (AUTO) 498 K/uL (140-450); RED BLOOD CELL COUNT(AUTO) 3.99 MIL/uL (4.20-6.10); RED CELL DISTRIBUTION WIDTH 14.4 % (11.6-13.7); WHITE BLOOD COUNT (AUTO) 12.1 K/uL (4.8-10.8)
[2019-06-30] MEDS: PYRIDOXINE 50 MG TAB PO SCH (08:54)
[2019-06-30] MEDS: metFORMIN 850 MG TAB PO SCH ×3 (08:54→17:00)
[2019-06-30] MEDS: ISONIAZID 100 MG TAB PO SCH (08:54)
[2019-06-30] MEDS: RIFAMPIN 300 MG CAP PO SCH (08:55)
[2019-06-30] MEDS: PYRAZINAMIDE 500 MG TAB PO SCH (08:55)
[2019-06-30] MEDS: ONDANSETRON 4 MG TAB PO PRN (08:55)
[2019-06-30] MEDS: ETHAMBUTOL 400 MG TAB PO SCH (08:55)
[2019-06-30] MEDS: LISINOPRIL 10 MG TAB PO SCH (08:55)
--- NOTE | 2019-06-30 09:00 | NUR ---
AM MEDICINE ADMINISTERED, PT TOLERATED WELL. EATING BREAKFAST AT THIS TIME.
--- NOTE | 2019-06-30 11:28 | NUR ---
PT'S BLOOD GLUCOSE IS 169 AT THIS TIME, PT IS REFUSING HIS SCHEDULED METFORMIN, SAYS THAT IT WILL MAKE HIS BLOOD SUGAR DROP VERY LOW. METFORMIN HELD.
[2019-06-30 16:00] VITALS: BP 105/62
[2019-06-30] MEDS: LACTULOSE 20 GM/30 ML UDC PO PRN (16:41)
--- NOTE | 2019-06-30 17:13 | NUR ---
PT'S BED LINENS CHANGED.
--- NOTE | 2019-06-30 17:30 | NUR ---
PT C/O FEELING CONSTIPATED, SAYS HE HASN'T HAD A BM IN THREE DAYS. LACTULOSE PRN ADMINISTERED FOR CONSTIPATION.
--- NOTE | 2019-06-30 19:20 | NUR ---
PT ENDORSED TO SUGAR CANE PLANTING EQUIPMENT OPERATOR IN STABLE CONDITION.
--- NOTE | 2019-06-30 19:21 | NUR ---
REPORT RECEIVED FROM AM NURSE AT BEDSIDE. PT IN STABLE CONDITION. AAOX4. INTRODUCED SELF TO PT. BOARD UPDATED. NO COMPLAINTS OF PAIN. NO SOB. PT IS AMBULATORY. POSITIVE FOR TB. IV SITE R FA 22G RUNNING D5 1/2NS@75ML/HR PATENT AND INTACT. SKIN WARM, DRY, AND NOT INTACT DUE TO WOUND ON THE R INDEX FINGER. BED LOCKED IN LOW POSITION. CALL DOSHI WITHIN REACH. SAFETY PRECAUTION IN PLACE. ALL NEEDS MET AT THIS TIME.
[2019-06-30 20:00] VITALS: BP 116/68
[2019-06-30] MEDS: SIMVASTATIN 10 MG TAB PO SCH (20:42)
--- NOTE | 2019-06-30 20:42 | NUR ---
GIVEN ZOCOR ORDERED. BS CHECKED, 114. NO INSULIN COVERAGE NEEDED. WILL CONTINUE TO MONITOR.
--- NOTE | 2019-06-30 22:30 | NUR ---
PT REPORTED HE DID LARGE AMOUNT OF BOWEL MOVEMENT AND FEEL COMFORTABLE NOW.
--- NOTE | 2019-07-01 00:15 | NUR ---
VS CHECKED, WITHIN PT'S BASELINE, BED IN LOW POSITION. CALL LIGHT WITHIN REACH.
--- NOTE | 2019-07-01 02:45 | NUR ---
PT SLEEPING IN BED. NO ACUTE DISTRESS NOTED. BED IN LOW POSITION.
--- NOTE | 2019-07-01 04:15 | NUR ---
PT SLEEPING IN BED. NO S/S OF SOB NOTED. BREATHING EVEN AND UNLABORED.
--- NOTE | 2019-07-01 05:10 | NUR ---
Nasotracheal suction PATIENT FOR 0500 SPUTUM SAMPLE. PATIENT UNABLE TO PROVIDE SAMPLE ON HIS OWN. PERFORMED PROCEDURE WITHOUT ANY ADVERSE REACTION. PROCEDURE EXPLAINED TO PATIENT. PATIENT UNDERSTOOD.
[2019-07-01] MEDS: BLOOD GLUCOSE MONITORING 1 DEV DEV FS SCH ×4 (05:39→21:50)
[2019-07-01] MEDS: DEXT 5% / NACL 0.45% 1,000 ML IV SCH ×2 (05:39→18:25)
--- NOTE | 2019-07-01 05:40 | NUR ---
BS CHECKED, 131 NO INSULIN COVERAGE NEEDED. WILL CONTINUE TO MONITOR.
--- NOTE | 2019-07-01 06:30 | NUR ---
PT AWAKE, LYING IN BED. NO ACUTE DISTRESS NOTED.
--- NOTE | 2019-07-01 07:15 | NUR ---
RECEIVED BEDSIDE REPORT FROM HEAD ATHLETIC TRAINER NURSE, PT IS AWAKE AND ALERT SITTING UP IN BED, NO S/S OF ANY ACUTE DISTRESS OR SOB NOTED. R FA 22 IV SITE PATENT AND INTACT. AIRBORNE ISOLATION IS IN PLACE. CALL LIGHT IS WITHIN REACH.
[2019-07-01 07:53] LABS: ANION GAP 12.3 (8-16); CARBON DIOXIDE 28.2 mmol/L (21-32); CREATININE 0.8 mg/dL (0.7-1.3); POTASSIUM 4.5 mmol/L (3.5-5.1); TOTAL BILIRUBIN 0.6 mg/dL (0.0-1.0)
[2019-07-01 08:00] VITALS: BP 132/68
[2019-07-01] MEDS: metFORMIN 850 MG TAB PO SCH ×3 (08:00→16:49)
[2019-07-01] MEDS: LISINOPRIL 10 MG TAB PO SCH (09:51)
[2019-07-01] MEDS: RIFAMPIN 300 MG CAP PO SCH (09:51)
[2019-07-01] MEDS: PYRIDOXINE 50 MG TAB PO SCH (09:51)
[2019-07-01] MEDS: ISONIAZID 100 MG TAB PO SCH (09:51)
[2019-07-01] MEDS: PYRAZINAMIDE 500 MG TAB PO SCH (09:52)
[2019-07-01] MEDS: ETHAMBUTOL 400 MG TAB PO SCH (09:52)
--- NOTE | 2019-07-01 09:57 | NUR ---
AM MEDS ADMINISTERED, PT TOLERATED WELL. PT REFUSED HIS METFORMIN; METFORMIN HELD BECAUSE HIS BLOOD GLUCOSE TENDS TO DROP TOO LOW.
--- NOTE | 2019-07-01 11:54 | NUR ---
PT'S BLOOD GLUCOSE IS CURRENTLY 226. PT WAS EDUCATED THAT THIS BLOOD SUGAR IS TOO HIGH AND HE NEEDS INSULIN COVERAGE. PT REFUSING INSULIN, BUT IS WILLING TO TAKE HIS ORDERED METFORMIN.
--- NOTE | 2019-07-01 12:32 | NUR ---
RT MADE AWARE THAT AN INDUCED SPUTUM SAMPLE IS NEEDED AT 14:00, NOT AT 13:00 ORIGINALLY ORDERED.
--- NOTE | 2019-07-01 14:20 | NUR ---
PT'S SPUTUM SAMPLE TAKEN TO LAB.
[2019-07-01 16:00] VITALS: BP 101/59
--- NOTE | 2019-07-01 16:10 | NUR ---
PT'S BLOOD GLUCOSE IS 158 AT THIS TIME, PT IS REFUSING TO TAKE SCHEDULED METFORMIN, NOR THE INSULIN COVERAGE.
--- NOTE | 2019-07-01 19:15 | NUR ---
PT ENDORSED TO MOTOR GRADER ROUGH GRADE IN STABLE CONDITION.
--- NOTE | 2019-07-01 19:18 | NUR ---
RECEIVED REPORT FROM AM NURSE. PT SITTING UP IN BED, AWAKE, ALERT AND ORIENTED. VISIBLE CHEST RISE AND FALL ON ROOM AIR, NO NOTED DISTRESS. ABLE TO ANSWER QUESTIONS AND FOLLOW COMMANDS. RIGHT FOREARM 22G INTACT AND INFUSING WELL. SAFETY MEASURES IN PLACE. CALL LIGHT WITHIN REACH.
[2019-07-01] MEDS: SIMVASTATIN 10 MG TAB PO SCH (21:47)
--- NOTE | 2019-07-01 21:47 | NUR ---
MEDICATIONS ADMINISTERED. PT TOLERATED WELL.
[2019-07-02 00:05] VITALS: BP 148/77
[2019-07-02] MEDS: ONDANSETRON 4 MG TAB PO PRN (00:08)
--- NOTE | 2019-07-02 00:08 | NUR ---
ZOFRAN GIVEN FOR NAUSEA. VITALS TAKEN. VITALS STABLE AT THIS TIME. BREATHING EQUAL AND UNLABORED.
--- NOTE | 2019-07-02 02:05 | NUR ---
ROUNDED ON PT. PT RESTING WITH EYES CLOSED. BREATHING EQUAL AND UNLABORED. CALL LIGHT WITHIN REACH.
--- NOTE | 2019-07-02 04:15 | NUR ---
ROUNDED ON PT. PT SLEEPING. VISIBLE CHEST RISE AND FALL ON ROOM AIR. NO VISIBLE SIGNS OF DISTRESS.
--- NOTE | 2019-07-02 06:52 | NUR ---
BLOOD GLUCOSE 137 AT THIS TIME. NO COVERAGE NEEDED PER SLIDING SCALE. PT AWAKE, ALERT AND ORIENTED. NO VISIBLE SIGNS OF DISTRESS. NO C/O DISCOMFORT. CALL LIGHT WITHIN REACH.
[2019-07-02] MEDS: BLOOD GLUCOSE MONITORING 1 DEV DEV FS SCH ×4 (07:05→21:47)
--- NOTE | 2019-07-02 07:25 | NUR ---
GOT BEDSIDE REPORT FROM ENGINE DYNAMOMETER TESTER NURSE. PATIENT ON MED SURGE FLOOR WITH STANDARD PRECAUTIONS IN PLACE. PATIENT AAOX3, ON ROOM AIR, NO DISTRESS NOTED. PATIENT AMBULATORY, SKIN INTACT, CONTINENT. IV ON R FA 22G INFUSING D5 1/2 NS AT 75, IV PATENT AND INTACT. WOUND ON R INDEX FINGER S/P WOUND DEBRIDEMENT. BED IN LOW POSITION, CALL LIGHT WITHIN REACH, SIDE RAILS X2 UP
[2019-07-02 08:00] VITALS: BP 135/73
[2019-07-02] MEDS: metFORMIN 850 MG TAB PO SCH ×3 (08:00→17:00)
[2019-07-02] MEDS: ISONIAZID 100 MG TAB PO SCH (08:48)
[2019-07-02] MEDS: PYRIDOXINE 50 MG TAB PO SCH (08:49)
[2019-07-02] MEDS: LISINOPRIL 10 MG TAB PO SCH (08:49)
[2019-07-02] MEDS: DEXT 5% / NACL 0.45% 1,000 ML IV SCH ×2 (08:51→20:55)
[2019-07-02] MEDS: ETHAMBUTOL 400 MG TAB PO SCH (08:56)
[2019-07-02] MEDS: PYRAZINAMIDE 500 MG TAB PO SCH (08:56)
[2019-07-02] MEDS: RIFAMPIN 300 MG CAP PO SCH (08:58)
[2019-07-02] MEDS ORDERED: HYDROcodone/APAP 5/325 MG 1 TAB TAB PO PRN (09:15)
--- NOTE | 2019-07-02 09:30 | NUR ---
PATIENT COMPLAINING OF HEARTBURN AND ABDOMINAL PAIN, WILL NOTIFY DR. HOUSTON
--- NOTE | 2019-07-02 11:00 | NUR ---
PATIENT WATCHING TV, ON ROOM AIR, NO DISTRESS NOTED
[2019-07-02] MEDS: ALUMINUM HYD/MAG/SIMETHICONE 30 ML UDC PO PRN (12:00)
--- NOTE | 2019-07-02 13:30 | NUR ---
PATIENT STATED HE NO LONGER HAS EPIGASTRIC PAIN, NO COMPLAINTS AT THIS TIME
--- NOTE | 2019-07-02 15:00 | NUR ---
PATIENT SLEEPING, ON ROOM AIR, NO DISTRESS NOTED
[2019-07-02 16:00] VITALS: BP 129/76
[2019-07-02] MEDS: INSULIN LISPRO SLIDING SCALE 100 UNITS/ML VIAL SUBQ PRN (17:00)
--- NOTE | 2019-07-02 17:06 | NUR ---
ADMINISTERED 2 UNITS INSULIN FOR BLOOD SUGAR 194. PATIENT TOLERATED WELL
--- NOTE | 2019-07-02 17:40 | NUR ---
SPUTUM SAMPLE SENT TO LAB SINCE LAB CALLED EARLIER STATING PREVIOUS SPUTUM SAMPLE WAS CONTAMINATED WITH SALIVA
--- NOTE | 2019-07-02 19:05 | NUR ---
Pt was endorsed to night nurse, MILLER Rodriguez. Pt in bed, sitting up comfortably. No signs of acute distress at this time. Pt has 22G to R forearm with D5 1/2 NS running at 75ml/hr. IV site clear and infusing.
--- NOTE | 2019-07-02 19:06 | NUR ---
RECD. RESTING IN BED, AWAKE, A/OX4. RESPIRATION EVEN AND UNLABORED. IV OF D5 1/2 NS AT 75 ML/HR INFUSING, RIGHT FOREARM G22. STATED HE STILL OCCASIONALLY HAVE UNPRODUCTIVE COUGHING. ON ROOM AIR. PLAN OF CARE FOR THE SHIFT DISCUSSED. VERBALIZED UNDERSTANDING. DENIES PAIN 0/10.
--- NOTE | 2019-07-02 19:30 | NUR ---
Patient's Plan of Care was discussed and reviewed with SAIL MAKER: EMMTET
--- NOTE | 2019-07-02 21:00 | NUR ---
SNACK FOR THE NIGHT GIVEN.
[2019-07-02] MEDS: SIMVASTATIN 10 MG TAB PO SCH (21:39)
[2019-07-02] MEDS: FAMOTIDINE 20 MG TAB PO SCH (21:39)
[2019-07-03] VITALS: BP 101/53
--- NOTE | 2019-07-03 | NUR ---
SLEEPING COMFORTABLY IN BED.
[2019-07-03] MEDS: DEXT 5% / NACL 0.45% 1,000 ML IV SCH ×3 (00:07→23:35)
--- NOTE | 2019-07-03 03:00 | NUR ---
STILL SLEEPING COMFORTABLY IN BED.
[2019-07-03] MEDS: BLOOD GLUCOSE MONITORING 1 DEV DEV FS SCH ×4 (06:45→21:08)
[2019-07-03] MEDS: INSULIN LISPRO SLIDING SCALE 100 UNITS/ML VIAL SUBQ PRN ×3 (06:46→21:08)
[2019-07-03] MEDS: ALUMINUM HYD/MAG/SIMETHICONE 30 ML UDC PO PRN (06:54)
--- NOTE | 2019-07-03 06:55 | NUR ---
COMPLAINT OF HEARTBURN, MEDICATED WITH MYLANTA ORDERED.
--- NOTE | 2019-07-03 07:25 | NUR ---
ENDORSED TO AM SHIFT NURSE FOR CONTINUITY OF CARE.
--- NOTE | 2019-07-03 07:26 | NUR ---
GOT BEDSIDE REPORT FROM DAIRY EQUIPMENT INSTALLER NURSE. PATIENT ON MED SURGE FLOOR WITH AIRBORNE PRECAUTIONS IN PLACE. PATIENT AAOX3, ON ROOM AIR, UNLABORED BREATHING. WOUND ON R INDEX FINGER OPEN TO AIR, NO DRAINAGE. PATIENT AMBULATORY AND CONTINENT. IV ON R FA 22G INFUSING D5 1/2 NS AT 75, IV PATENT AND INTACT. BED IN LOW POSITION, CALL LIGHT WITHIN REACH, SIDE RAILS X2 UP
[2019-07-03 08:00] VITALS: BP 135/76
[2019-07-03] MEDS: metFORMIN 850 MG TAB PO SCH ×3 (08:00→17:00)
[2019-07-03] MEDS: ETHAMBUTOL 400 MG TAB PO SCH (09:50)
[2019-07-03] MEDS: FAMOTIDINE 20 MG TAB PO SCH ×2 (09:51→21:10)
[2019-07-03] MEDS: ISONIAZID 100 MG TAB PO SCH (09:51)
[2019-07-03] MEDS: LISINOPRIL 10 MG TAB PO SCH (09:51)
[2019-07-03] MEDS: PYRIDOXINE 50 MG TAB PO SCH (09:51)
[2019-07-03] MEDS: PYRAZINAMIDE 500 MG TAB PO SCH (09:52)
[2019-07-03] MEDS: RIFAMPIN 300 MG CAP PO SCH (09:52)
--- NOTE | 2019-07-03 09:55 | NUR ---
ADMINISTERED SCHEDULED MEDS. PATIENT TOLERATED WELL
--- NOTE | 2019-07-03 11:22 | NUR ---
PATIENT WATCHING TV, ON ROOM AIR, UNLABORED BREATHING
--- NOTE | 2019-07-03 13:00 | NUR ---
ADMINISTERED 2 UNITS INSULIN FOR BLOOD SUGAR 166, PATIENT TOLERATED WELL
--- NOTE | 2019-07-03 14:48 | NUR ---
07/03/19 RD FOLLOW UP COMPLETED PLEASE REFER TO NUTRITION ASSESSMENT UNDER CARE ACTIVITY FOR ESTIMATED NUTRITIONAL NEEDS. 1. CONTINUE CCHO [address] 2. [address] TO FOLLOW-UP 5-7 DAYS, LOW RISK LUIZ BALBUENA RD
--- NOTE | 2019-07-03 15:46 | NUR ---
PATIENT LAYING IN BED COMFORTABLY, ON ROOM AIR, UNLABORED BREATHING
[2019-07-03 16:00] VITALS: BP 133/78
--- NOTE | 2019-07-03 18:18 | NUR ---
PAGED AND SPOKE TO DR. HOUSTON REGARDING SECOND SPUTUM CULTURE REJECTED FROM [facility]. NO NEW ORDERS AT THIS TIME
--- NOTE | 2019-07-03 19:23 | NUR ---
GAVE BEDSIDE REPORT TO ISIS CLARK. PATIENT ENDORSED IN STABLE CONDITION
--- NOTE | 2019-07-03 19:25 | NUR ---
RECEIVED PT FROM YUNIEL MARINELLI PT KYRGYZ SPEAKER AAOX4 AMBULATORY WITH DX TB AND PENDING A NEW PROCEDURE LIKE BRONCHOSCOPY BECAUSE PT IS DIFFICULT TO GIVE SPUTUM SAMPLE. INITIAL ASSESSMENT DONE
--- NOTE | 2019-07-03 19:26 | NUR ---
Patient's Plan of Care was discussed and reviewed with MILLER: MADINA. SAFETY MEASURES ARE IN PLACE. WILL CONTINUE TO MONITOR
--- NOTE | 2019-07-03 20:15 | NUR ---
PT BLOOD SUGAR 175, AND PT IS ENDORSED TO MADINA MARINELLI FOR CONTINUITY OF CARE
--- NOTE | 2019-07-03 20:16 | NUR ---
RECD. RESTING IN BED, AWAKE, A/OX4. RESPIRATION EVEN AND UNLABORED. STATED HE HAS STILL OCCASIONAL UNPRODUCTIVE COUGH. 02 SAT - 95% ON ROOM AIR. DENIES PAIN AT THIS TIME, 0/10.
--- NOTE | 2019-07-03 21:00 | NUR ---
ATE 100% OF SNACK FOR THE NIGHT.
[2019-07-03] MEDS: SIMVASTATIN 10 MG TAB PO SCH (21:10)
[2019-07-04] VITALS: BP 127/70
--- NOTE | 2019-07-04 | NUR ---
SLEEPING COMFORTABLY IN BED.
[2019-07-04] MEDS: DEXT 5% / NACL 0.45% 1,000 ML IV SCH ×2 (02:09→12:56)
--- NOTE | 2019-07-04 03:00 | NUR ---
STILL SLEEPING IN BED. NO SOB NOTED.
--- NOTE | 2019-07-04 06:00 | NUR ---
ABLE TO SLEEP WELL. CONDITION REMAIN STABLE.
[2019-07-04] MEDS: BLOOD GLUCOSE MONITORING 1 DEV DEV FS SCH ×4 (07:13→21:00)
[2019-07-04] MEDS: INSULIN LISPRO SLIDING SCALE 100 UNITS/ML VIAL SUBQ PRN ×3 (07:14→21:25)
--- NOTE | 2019-07-04 07:20 | NUR ---
ENDORSED TO AM SHIFT NURSE FOR CONTINUITY OF CARE.
--- NOTE | 2019-07-04 07:24 | NUR ---
RECEIVED BEDSIDE REPORT FROM CURATOR OF MANUSCRIPTS NURSE. PT IN STABLE CONDITION BREATHING UNLABORED. PT ON AIRBORNE PRECAUTIONS FOR ACTIVE TB. PT HAS OPEN TO AIR RIGHT INDEX FINGER BLACK SCAB AT TIP ON DISTAL END. NO DRAINAGE OR PAIN NOTED. PT IS INFUSING D5 1/2 NS AT 75ML/HR. PT HAS RIGHT FOREARM IV THAT IS ASYMPTOMATIC AND PATENT. ALL SAFETY MEASURES IN PLACE AND CALL LIGHT WITHIN REACH. WILL ROUND FREQUENTLY ON PT.
[2019-07-04] MEDS: metFORMIN 850 MG TAB PO SCH ×4 (08:00→16:22)
[2019-07-04 08:10] VITALS: BP 128/71
[2019-07-04 08:32] LABS: BASOPHILS # (AUTO) 0.1 K/uL (0.00-0.22); BASOPHILS % (AUTO) 0.9 % (0.0-2.0); EOSINOPHILS # (AUTO) 0.1 K/uL (0-0.4); EOSINOPHILS % (AUTO) 0.5 % (0.0-4.0); HEMATOCRIT 33.6 % (36-52); HEMOGLOBIN 11.2 g/dL (12.0-18.0); LYMPHOCYTES % (AUTO) 9.4 % (20.5-51.1); MEAN CORPUSCULAR HEMOGLOBIN 26 pg (27-31); MEAN CORPUSCULAR HGB CONC 33 g/dL (33-37); MEAN CORPUSCULAR VOLUME 77.3 fL (80-94); MONOCYTES # (AUTO) 1.1 K/uL (0.8-1.0); MONOCYTES % (AUTO) 9.8 % (1.7-9.3); NEUTROPHILS # (AUTO) 8.5 K/uL (1.8-7.7); NEUTROPHILS % (AUTO) 79.4 % (42.2-75.2); PLATELET COUNT (AUTO) 655 K/uL (140-450); RED BLOOD CELL COUNT(AUTO) 4.34 MIL/uL (4.20-6.10); RED CELL DISTRIBUTION WIDTH 14.6 % (11.6-13.7); WHITE BLOOD COUNT (AUTO) 10.7 K/uL (4.8-10.8)
[2019-07-04 08:41] LABS: ALBUMIN 1.9 g/dL (3.4-5.0); ANION GAP 9.5 (8-16); CARBON DIOXIDE 29.6 mmol/L (21-32); CREATININE 0.8 mg/dL (0.7-1.3); POTASSIUM 4.1 mmol/L (3.5-5.1); TOTAL BILIRUBIN 0.6 mg/dL (0.0-1.0)
--- NOTE | 2019-07-04 09:26 | NUR ---
ADMINISTERED MORNING MEDS TO PT. PT TOLERATED THEM WELL. WILL CONTINUE TO ROUND FREQUENTLY ON PT.
[2019-07-04] MEDS: ETHAMBUTOL 400 MG TAB PO SCH (09:38)
[2019-07-04] MEDS: RIFAMPIN 300 MG CAP PO SCH (09:39)
[2019-07-04] MEDS: PYRIDOXINE 50 MG TAB PO SCH (09:39)
[2019-07-04] MEDS: ISONIAZID 100 MG TAB PO SCH (09:39)
[2019-07-04] MEDS: PYRAZINAMIDE 500 MG TAB PO SCH (09:39)
[2019-07-04] MEDS: LISINOPRIL 10 MG TAB PO SCH (09:39)
[2019-07-04] MEDS: FAMOTIDINE 20 MG TAB PO SCH ×2 (09:40→21:07)
--- NOTE | 2019-07-04 11:46 | NUR ---
[facility] TB nurses: 1. Jackie # 2. Rima # Discharge clearance request form was sent via fax on 06/27/2019 Documents provided to [facility]: H&P, CXR report 06/23/19, CT Chest report 06/23/19, AFB sputum smear X3 report, HIV rapid scr report, progress notes of Vel Hunter (06/26/19), Progress notes of Dhaval Syed (06/26/19). Follow up phone call on 07/01/19: Spoke with Rima. She asked for QFT Gold and PCR of sputum smear X2 which were ordered on the same day by Jaki (charge nurse). But the order got cancelled automatically because of the time issue. So the tests were again ordered on 07/02/19 by Michael Gorman (paving and surfacing labourer). 07/04/19: QFT Gold - pending AFB sputum smear PCR- pending Spoke with Jackie (public health Nurse) this morning. She requested for new AFB sputum X 3 to find out if the patient will need isolation at home after discharge. RT were unable to collect sputum sample, because patient is not coughing up any sputum. Called back Jackie @12:20, not answering the phone.
--- NOTE | 2019-07-04 11:47 | NUR ---
PT SITTING AT BEDSIDE CHAIR HAVING LUNCH. PT VERBALIZES ALL NEEDS MET. WILL CONTINUE TO ROUND FREQUENTLY ON PT.
--- NOTE | 2019-07-04 12:17 | NUR ---
SPOKE WITH INFECTION CONTROL STAFF SRAVANI REGARDING PT UNABLE TO PRODUCE SPUTUM FOR SPECIMEN TESTING. PER HER INSTRUCTIONS, WILL CANCEL AFB SPUTUM COLLECTION AND HAVE RT COLLECT SPUTUM TOMORROW MORNING FROM PT. WILL REPORT RESULTS BACK TO HER TOMORROW MORNING.
--- NOTE | 2019-07-04 13:45 | NUR ---
PT RESTING IN BED NAPPING. ALL NEEDS CURRENTLY MET. NO SIGNS OF DISTRESS OR PAIN. WILL CONTINUE TO ROUND FREQUENTLY ON PT.
--- NOTE | 2019-07-04 15:36 | NUR ---
PT RESTING IN BED WATCHING TV. NO PAIN OR DISTRESS NOTED. WILL CONTINUE TO ROUND FREQUENCY ON PT.
[2019-07-04 16:00] VITALS: BP 146/82
--- NOTE | 2019-07-04 17:02 | NUR ---
Post-discharge appointment made with [facility] for July 10, 2019 at 11:00am. Pt informed and agreeable. D/c plan packet faxed to [facility] [place], operated by [facility] Rima/Jackie . Confirmation received. Lilian Llanes, ACSW Ext [phone]
--- NOTE | 2019-07-04 17:39 | NUR ---
PT RESTING IN BED. NO COMPLAINTS OF PAIN OR DISTRESS NOTED. WILL CONTINUE TO ROUND FREQUENTLY ON PT.
--- NOTE | 2019-07-04 19:22 | NUR ---
RECEIVED REPORT FROM SEMAJ MARINELLI DAYSHIFT NURSE AT BEDSIDE FOR CONTINUITY OF CARE, PT IN STABLE CONDITION.
--- NOTE | 2019-07-04 19:37 | NUR ---
ENDORSED PT TO LEAD SYSTEMS DEVELOPER FOR CONTINUITY OF CARE. PT IN STABLE CONDITION AT THIS TIME.
--- NOTE | 2019-07-04 21:00 | NUR ---
PT IN BED ALL AIRBORNE PRECAUTIONS IN PLACE. IV SITE ON RIGHT F/A INTACT AND RUNNING D51/2N/S AT 75MLS/HR. V/S FOLLOWS T 97.8 P 71 R 18 B/P 148/78 02 97% ON ROOM AIR. NO C/O VOICED BY PT. SPUTUM CUP LEFT AT BEDSIDE, PT INSTRUCTED IF HE CAN GIVE A SPUTUM SAMPLE WITH PHLEGM THEN TO SPIT IN THE CONTAINER, PT VERBALIZED UNDERSTANDING.
[2019-07-04] MEDS: SIMVASTATIN 10 MG TAB PO SCH (21:08)
--- NOTE | 2019-07-04 21:35 | NUR ---
PT GIVEN ORDERED PEPCID AND ZOCOR MEDICATION EDUCATION PROVIDED TO PT. PT IV SITE LOOKED RED ABOVE INSERTION SITE, PT SAID IT WAS STARING TO HURT. IV SITE DISCONTINUED AND NEW IV SITE PROVIDED ON RIGHT WRIST 22 GUAGE X1 ATTEMPTED , PT TOLERATED WELL. FINGERSTICK IS 161, PT GIVEN 2 UNITS OF HUMALOG COVERAGE.
--- NOTE | 2019-07-04 23:10 | NUR ---
PT IN BED AWAKE NO C/O VOICED AT THIS TIME D51/2 NS RUNNING AT 75MLS ORDERED.
[2019-07-05] VITALS: BP 152/85
--- NOTE | 2019-07-05 00:15 | NUR ---
PT ABLE TO PROVIDE SPUTUM SAMPLE, SAMPLE IS FOAMY AND LIQUID LIKE, WILL SUBMIT 5TO LAB FOR TESTING. V/S FOLLOWS T 97.9 P 71 R 18 B/P 152/85 02 97% ON ROOM AIR.
[2019-07-05] MEDS: DEXT 5% / NACL 0.45% 1,000 ML IV SCH ×2 (02:15→15:35)
[2019-07-05] MEDS: ALUMINUM HYD/MAG/SIMETHICONE 30 ML UDC PO PRN ×2 (03:54→18:50)
--- NOTE | 2019-07-05 04:11 | NUR ---
PT AMBULATED TO THE TOILET AND BACK, PT C/O OF VOMITING WATER X1. PT GIVEN REQUESTED PO/PRN MAALOX ORDERED FOR UPSET STOMACH. D51/2 NS RUNNING AT 75MLS ORDERED.FLUID BAG AND TUBING REPLACED.
--- NOTE | 2019-07-05 06:30 | NUR ---
PT IN BED NO C/O VOICED POSITIVE EFFECT OF MAALOX NOTED. FINGERSTICK IS 175, PT GIVEN 2 UNITS OF HUMALOG COVERAGE. WILL ENDORSE POC TO AM SHIFT.
[2019-07-05] MEDS: INSULIN LISPRO SLIDING SCALE 100 UNITS/ML VIAL SUBQ PRN ×3 (06:52→18:18)
[2019-07-05] MEDS: BLOOD GLUCOSE MONITORING 1 DEV DEV FS SCH ×4 (07:13→21:00)
--- NOTE | 2019-07-05 07:26 | NUR ---
RECEIVED BEDSIDE REPORT FROM ERECTOR OPERATOR NURSE. PT IN STABLE CONDITION BREATHING UNLABORED. PT ON AIRBORNE PRECAUTIONS FOR ACTIVE TB. PT HAS OPEN TO AIR RIGHT INDEX FINGER BLACK SCAB AT TIP ON DISTAL END. NO DRAINAGE OR PAIN NOTED. PT IS INFUSING D5 1/2 NS AT 75ML/HR. PT HAS RIGHT FOREARM IV THAT IS ASYMPTOMATIC AND PATENT. ALL SAFETY MEASURES IN PLACE AND CALL LIGHT WITHIN REACH. WILL ROUND FREQUENTLY ON PT.
[2019-07-05] MEDS: metFORMIN 850 MG TAB PO SCH ×3 (08:00→17:00)
[2019-07-05 08:25] VITALS: BP 145/85
--- NOTE | 2019-07-05 09:28 | NUR ---
ADMINISTERED MORNING MEDS TO PT. PT TOLERATED THEM WELL. WILL CONTINUE TO ROUND FREQUENTLY ON PT.
[2019-07-05] MEDS: FAMOTIDINE 20 MG TAB PO SCH ×2 (09:40→20:09)
[2019-07-05] MEDS: LISINOPRIL 10 MG TAB PO SCH (09:40)
[2019-07-05] MEDS: PYRIDOXINE 50 MG TAB PO SCH (09:40)
[2019-07-05] MEDS: ONDANSETRON 4 MG TAB PO PRN (09:41)
[2019-07-05] MEDS ORDERED: RIFAMPIN 300 MG CAP PO SCH (10:00)
[2019-07-05] MEDS ORDERED: ISONIAZID 100 MG TAB PO SCH (10:00)
[2019-07-05] MEDS ORDERED: ETHAMBUTOL 400 MG TAB PO SCH (10:00)
[2019-07-05] MEDS ORDERED: PYRAZINAMIDE 500 MG TAB PO SCH (10:00)
--- NOTE | 2019-07-05 12:12 | NUR ---
PT SITTING AT BEDSIDE CHAIR HAVING LUNCH. PT VERBALIZES ALL NEEDS MET. WILL CONTINUE TO ROUND FREQUENTLY ON PT.
--- NOTE | 2019-07-05 15:47 | NUR ---
PT RESTING IN BED NAPPING. ALL NEEDS CURRENTLY MET. NO SIGNS OF DISTRESS OR PAIN. WILL CONTINUE TO ROUND FREQUENTLY ON PT.
[2019-07-05 16:00] VITALS: BP 133/76
[2019-07-05] MEDS: LACTULOSE 20 GM/30 ML UDC PO PRN (18:50)
--- NOTE | 2019-07-05 19:23 | NUR ---
REPORT RECEIVED FROM SEMAJ MARINELLI DAYSHIFT NURSE AT BEDSIDE FOR CONTINUITY OF CARE, PT IN STABLE CONDITION.
--- NOTE | 2019-07-05 19:58 | NUR ---
ENDORSED PT TO SPONGE BUFFER FOR CONTINUITY OF CARE. PT IN STABLE CONDITION AT THIS TIME.
[2019-07-05] MEDS: SIMVASTATIN 10 MG TAB PO SCH (20:10)
[2019-07-05] MEDS: RIFAMPIN 300 MG CAP PO SCH (20:11)
--- NOTE | 2019-07-05 21:00 | NUR ---
PT IN BED AOX4 IV SITE ON LEFT WRIST 24 G INTACT AND ASYMPTOMATIC. IV FLUIDS RUNNING D5/1/2 NS AT 75MLS/HR. PT HAS NO C/O OF PAIN. V/S FOLLOWS T 98.2 P 68 R 18 B/P 143/68 02 100% ON ROOM AIR. PT SAID HE DOESN'T FEEL NAUSEA BUT IS TAKING HIS TIME WITH HIS DINNER, HE SAID THAT HE HAD BEEN EATING ALL HIS MEALS LATE. PT APPETITE REMAINS POOR BUT HE HAS NO C/O OF PAIN AND NO COUGH NOTED, LUNGS SOUNDS ALSO CLEAR. PT GIVEN DUE MEDS OF RIFAMPIN FOR TB, PEPCID FOR GERD AND ZOCOR FOR HLD. MEDICATION EDUCATION PROVIDED TO PT, FAMILY AT BEDSIDE.
--- NOTE | 2019-07-05 21:30 | NUR ---
PT FINGERSTICK IS 108, NO COVERAGE NEEDED. PT CONTINUE TO DECLINE SUPPER DESPITE ENCOURAGEMENT TO EAT, ALSO AWAITING EFFECT OF LACTULOSE. PT IN LOW BED WITH CALL DOSHI IN REACH. ALL REQUESTED NEEDS ATTENDED BY STAFF.BOWEL SOUNDS POSITIVE.
[2019-07-06 00:24] VITALS: BP 124/75
--- NOTE | 2019-07-06 00:30 | NUR ---
PT IN BED SLEEPING WITH EYES CLOSED NO S/S OF PAIN OR DISTRESS NOTED. PT ON LOW BED WITH SIDE RAILS UP X2. 24G ON LEFT WRIST RUNNING 75MLS/HR ORDERED. V/S FOLLOWS T 97.9 P 72 R 18 B/P 124/75 02 96% ON ROOM AIR.
[2019-07-06] MEDS: INSULIN LISPRO SLIDING SCALE 100 UNITS/ML VIAL SUBQ PRN ×2 (06:20→17:40)
[2019-07-06] MEDS: DEXT 5% / NACL 0.45% 1,000 ML IV SCH ×2 (06:22→18:43)
[2019-07-06] MEDS: BLOOD GLUCOSE MONITORING 1 DEV DEV FS SCH ×4 (06:23→20:42)
--- NOTE | 2019-07-06 06:25 | NUR ---
PT IN BED NO S/S OF PAIN OR DISTRESS NOTED, IV FLUIDS D5 1/2 NS REPLACED FINGERSTICK IS 175, PT GIVEN 2 UNITS OF HUMALOG COVERAGE ALL REQUESTED NEEDS ATTENDED. WILL ENDORSE PT CARE TO NEXT SHIFT, PT IN STABLE CONDITION.
--- NOTE | 2019-07-06 07:30 | NUR ---
RECEIVED REPORT FROM MANAGER OF SELECTION AND ASSESSMENT NURSE. PATIENT IS RESTING IN BED, NO S/S OF RESPIRATORY DISTRESS. PATIENT HAS A LEFT WRIST 24G IV WITH D5 1/2 NS @75ML/HR. PATIENT IS A&OX4. NKA, FULL CODE. WILL CONTINUE TO MONITOR.
[2019-07-06 08:00] VITALS: BP 127/72
[2019-07-06] MEDS: metFORMIN 850 MG TAB PO SCH ×4 (08:00→17:39)
--- NOTE | 2019-07-06 08:45 | NUR ---
RECEIVED REPORT FROM DAY SHIFT NURSE FOR CONTINUITY OF CARE. PT IN STABLE CONDITION. IV INTACT AND PATENT. RESPIRATIONS EVEN AND UNLABORED, ROOM AIR. BED IN LOW POSITION. CALL LIGHT AT BEDSIDE. WILL CONTINUE TO MONITOR.
[2019-07-06] MEDS: FAMOTIDINE 20 MG TAB PO SCH ×2 (09:24→20:17)
[2019-07-06] MEDS: LISINOPRIL 10 MG TAB PO SCH (09:24)
[2019-07-06] MEDS: PYRAZINAMIDE 500 MG TAB PO SCH (09:25)
[2019-07-06] MEDS: PYRIDOXINE 50 MG TAB PO SCH (09:25)
[2019-07-06] MEDS: RIFAMPIN 300 MG CAP PO SCH ×2 (09:27→20:19)
[2019-07-06] MEDS: ETHAMBUTOL 400 MG TAB PO SCH (09:29)
[2019-07-06] MEDS: ISONIAZID 100 MG TAB PO SCH (09:37)
--- NOTE | 2019-07-06 10:15 | NUR ---
PT LYING IN BED SLEEPING AT THIS TIME. RESPIRATIONS EVEN AND UNLABORED, ROOM AIR. BED IN LOW POSITION. CALL LIGHT AT BEDSIDE. WILL CONTINUE TO MONITOR.
--- NOTE | 2019-07-06 12:30 | NUR ---
PT LYING IN BED LOOKING AT HIS PHONE. RESPIRATIONS EVEN AND UNLABORED, ROOM AIR. BED IN LOW POSITION. CALL LIGHT AT BEDSIDE. WILL CONTINUE TO MONITOR.
--- NOTE | 2019-07-06 14:00 | NUR ---
PT VISITING WITH FRIEND AT BEDSIDE. RESPIRATIONS EVEN AND UNLABORED, ROOM AIR. BED IN LOW POSITION. CALL LIGHT AT BEDSIDE. WILL CONTINUE TO MONITOR.
[2019-07-06 16:00] VITALS: BP 132/76
--- NOTE | 2019-07-06 16:45 | NUR ---
FAMILY AT BEDSIDE. PT IN STABLE CONDITION. RESPIRATIONS EVEN AND UNLABORED, ROOM AIR. BED IN LOW POSITION. CALL LIGHT AT BEDSIDE. WILL CONTINUE TO MONITOR.
[2019-07-06] MEDS: ONDANSETRON 4 MG TAB PO PRN (18:37)
--- NOTE | 2019-07-06 18:44 | NUR ---
PT FEELING NAUSEA AT THIS TIME. GAVE PRN ZOFRAN. PT IN STABLE CONDITION.
--- NOTE | 2019-07-06 19:13 | NUR ---
GAVE REPORT TO ONSITE CASE MANAGER NURSE AFUA FOR CONTINUITY OF CARE. PT IN STABLE CONDITION.
--- NOTE | 2019-07-06 19:22 | NUR ---
RECEIVED REPORT FROM RYAN RN DAYSHIFT NURSE AT BEDSIDE FOR CONTINUITY OF CARE, PT IN STABLE CONDITION.
--- NOTE | 2019-07-06 20:00 | NUR ---
PT IN BED ALL AIRBORNE PRECAUTIONS IN PLACE V/S FOLLOWS T 98.0 P 66 R 18 B/P 127/77 02 96% ON ROOM AIR. FINGERSTICK IS 141, NO COVERAGE NEEDED.
[2019-07-06] MEDS: SIMVASTATIN 10 MG TAB PO SCH (20:18)
--- NOTE | 2019-07-06 20:30 | NUR ---
PT IN BED ALL AIRBORNE PRECAUTIONS IN PLACE, PT IS AOX4 IN BED . PT STATES HE STILL FEELS LACK OF APPETITE AND THAT HE HAS 'NT HAD A BM IN 3 DAYS. PT GIVEN PRN LACTULOSE WELL PRUNE JUICE. WILL MONITOR FOR EFFECT. PT HAS NO C/O OF PAIN, LUNGS CLEAR TO AUSCULTATION, NO COUGHING NOTED.
[2019-07-06] MEDS: LACTULOSE 20 GM/30 ML UDC PO PRN (20:33)
[2019-07-07] VITALS: BP 122/69
--- NOTE | 2019-07-07 00:15 | NUR ---
PT IN BED IV SITE INTACT AND RUNNING D51/2 NS AT 75MLS/HR. IV SITE INTACT AND FLUSHED PATENT. PT V/S FOLLOWS T 99.3 P 66 R 18 B/P 122/69 02 98% ON ROOM AIR. PT SAID THAT HE STILL DID NOT HAVE A BM, HOWEVER HE DENIES PAIN. ALL REQUESTED NEEDS ATTENDED AND CALL DOSHI IN REACH, AIRBORNE PRECAUTIONS IN PLACE.
--- NOTE | 2019-07-07 06:00 | NUR ---
PT IN BED , HE SAID HE HAD NO BM LAST NIGHT. PT ALSO CONTINUES TO HAVE DECREASED APPETITE. IV SITE INTACT AND RUNNING D51/2 NS ORDERED. FINGERSTICK IS 125, NO COVERAGE NEEDED. WILL ENDORSE POC TO NEXT SHIFT, PT IN STABLE CONDITION.
[2019-07-07] MEDS: BLOOD GLUCOSE MONITORING 1 DEV DEV FS SCH ×4 (06:02→21:00)
[2019-07-07] MEDS: DEXT 5% / NACL 0.45% 1,000 ML IV SCH (06:33)
--- NOTE | 2019-07-07 07:10 | NUR ---
GOT BEDSIDE REPORT FROM GREY GOODS EXAMINER NURSE. PATIENT ON MED SURGE FLOOR WITH AIRBORNE PRECAUTIONS IN PLACE FOR POSITIVE TB. PATIENT AAOX3, ON ROOM AIR, UNLABORED BREATHING. PATIENT AMBULATORY AND CONTINENT. WOUND ON RIGHT INDEX FINGER, OPEN TO AIR, S/P SURGERY. IV ON L FA 24 G INFUSING D5 1/2 NS AT 75, IV PATENT AND INTACT. BED IN LOW POSITION, CALL LIGHT WITHIN REACH, SIDE RAILS X2 UP
[2019-07-07 08:00] VITALS: BP 147/89
[2019-07-07] MEDS: metFORMIN 850 MG TAB PO SCH ×3 (08:00→17:00)
[2019-07-07] MEDS: LISINOPRIL 10 MG TAB PO SCH (08:34)
[2019-07-07] MEDS: PYRIDOXINE 50 MG TAB PO SCH (08:34)
[2019-07-07] MEDS: FAMOTIDINE 20 MG TAB PO SCH ×2 (08:34→22:28)
[2019-07-07] MEDS: ISONIAZID 100 MG TAB PO SCH (08:35)
[2019-07-07] MEDS: ETHAMBUTOL 400 MG TAB PO SCH (08:35)
[2019-07-07] MEDS: PYRAZINAMIDE 500 MG TAB PO SCH (08:35)
[2019-07-07] MEDS: RIFAMPIN 300 MG CAP PO SCH ×2 (08:36→22:31)
--- NOTE | 2019-07-07 08:38 | NUR ---
ADMINISTERED SCHEDULED MEDS. PATIENT TOLERATED WELL
--- NOTE | 2019-07-07 11:19 | NUR ---
LAB PROVIDED COPY OF RESULT FOR QUANTIFERON TB GOLD PLUS FROM [facility] TODAY AND SHOWED DR. MORALES RESULT OF TEST. STATED HE IS WAITING FOR OK FROM [facility]
[2019-07-07] MEDS: INSULIN LISPRO SLIDING SCALE 100 UNITS/ML VIAL SUBQ PRN (11:41)
[2019-07-07] MEDS: ONDANSETRON 4 MG TAB PO PRN (11:45)
--- NOTE | 2019-07-07 11:46 | NUR ---
ADMINISTERED PRN ZOFRAN FOR NAUSEA, PATIENT TOLERATED WELL. DAUGHTER AT BEDSIDE
--- NOTE | 2019-07-07 14:00 | NUR ---
LEFT A VOICEMAIL MESSAGE TO SRAVANI, INFECTIOUS DSE NURSE (#[id number]),REGARDING PT'S TB GOLD RESULT. AWAITING FOR CALL BACK.
--- NOTE | 2019-07-07 15:23 | NUR ---
Pagesyed and spoke to Dr. Summers at [phone] regarding patient's complaint of loss of appetite for several days now, feeling nauseated after eating, and LBM about [address] Summers ordered milk of magnesia for patient
--- NOTE | 2019-07-07 15:55 | NUR ---
PAGED AND SPOKE TO DR. VALENTE REGARDING TB GOLD RESULTS FROM LAB AND SPUTUM CULTURE FROM 06/26/19 1 WEEK AFTER INCUBATION THAT SMEAR (+) AFB AND CULTURE (+) MYCOBACTERIUM TB COMPLEX. DR. VALENTE STATED HE ALREADY KNOWS PATIENT IS POSITIVE FOR TB, HE IS JUST WAITING FOR PATIENT TO BE CLEARED FROM [facility]
[2019-07-07 16:00] VITALS: BP 133/80
[2019-07-07] MEDS ORDERED: MAGNESIUM HYDROXIDE 2400 MG/30 ML UDC PO SCH (16:00)
--- NOTE | 2019-07-07 16:40 | NUR ---
Administered scheduled meds. Patient tolerated well
--- NOTE | 2019-07-07 19:24 | NUR ---
GAVE BEDSIDE REPORT TO REAL ESTATE LEGAL SECRETARY NURSE. PATIENT ENDORSED IN STABLE CONDITION
--- NOTE | 2019-07-07 19:24 | NUR ---
RECIEVED PT AAOX4 , NID , IV SITE INTACT AND PATENT , COMPLAINING OF CONSTIPATION AND LOSS OF APPETITE , RELATIVES AT BEDSIDE , PLAN OF CARE DISCUSSED AND VERBALIZE UNDERSTANDING , ENCOURAGE EAT HIGH FIBER FOOD AND INCREASE ORAL FLD. INTAKE . BED IN LOW POSITION , CALL LIGHT WITHIN REACH , SIDERAILS UPX2 ,WILL CONT. TO MONITOR.
--- NOTE | 2019-07-07 22:00 | NUR ---
MADE ROUNDS .RESP. EVEN AND UNLABORED , NO COMPLAIN MADE AT THIS TIME. CALL LIGHT WITHIN REACH.
[2019-07-07] MEDS: SIMVASTATIN 10 MG TAB PO SCH (22:29)
[2019-07-08] VITALS: BP 130/80
--- NOTE | 2019-07-08 | NUR ---
MADE ROUNDS . RESP EVEN AND UNLABORED . CALL LIGHT WITHIN REACH.
[2019-07-08] MEDS: DEXT 5% / NACL 0.45% 1,000 ML IV SCH ×2 (01:09→10:15)
--- NOTE | 2019-07-08 02:00 | NUR ---
PT IS SLEEPING. CALL LIGHT WITHIN REACH
--- NOTE | 2019-07-08 04:00 | NUR ---
MADE ROUNDS ,RESP. EVEN AND UNLABORED , STILL WITH OUT BM , CALL LIGHT WITHIN REACH.
[2019-07-08] MEDS: BLOOD GLUCOSE MONITORING 1 DEV DEV FS SCH ×4 (06:06→21:05)
--- NOTE | 2019-07-08 07:30 | NUR ---
ENDORSED TO AM SHIFT NURSE FOR CONT. OF CARE WITH STABLE CONDITION.
--- NOTE | 2019-07-08 07:31 | NUR ---
RECEIVED BEDSIDE REPORT FROM LAST MARKER NURSE. PATIENT ON MED SURGE FLOOR WITH AIRBORNE PRECAUTIONS IN PLACE. PATIENT AAOX3, FOLLOWS COMMANDS, AND COMMUNICATES APPOPRIATELY, AMBULATORY AND CONTINENT. PATIENT ON ROOM AIR, WITH NO DISTRESS NOTED. IV ON L FA 24G INFUSING D5 1/2 NS AT 75, IV PATENT AND INTACT. BED IN LOW POSITION, CALL LIGHT WITHIN REACH, SIDE RAILS X2 UP
[2019-07-08 08:00] VITALS: BP 128/76
[2019-07-08] MEDS: metFORMIN 850 MG TAB PO SCH ×3 (08:00→17:00)
[2019-07-08] MEDS: ONDANSETRON 4 MG TAB PO PRN (08:31)
[2019-07-08] MEDS: FAMOTIDINE 20 MG TAB PO SCH ×2 (08:32→21:04)
[2019-07-08] MEDS: LISINOPRIL 10 MG TAB PO SCH (08:32)
[2019-07-08] MEDS: PYRIDOXINE 50 MG TAB PO SCH (08:32)
[2019-07-08] MEDS: ISONIAZID 100 MG TAB PO SCH (08:32)
[2019-07-08] MEDS: ETHAMBUTOL 400 MG TAB PO SCH (08:33)
[2019-07-08] MEDS: RIFAMPIN 300 MG CAP PO SCH ×2 (08:34→21:04)
[2019-07-08] MEDS: PYRAZINAMIDE 500 MG TAB PO SCH (08:34)
--- NOTE | 2019-07-08 08:45 | NUR ---
ADMINISTERED SCHEDULED MEDS. PATIENT TOLERATED WELL
--- NOTE | 2019-07-08 11:26 | NUR ---
PATIENT WATCHING TV, ON ROOM AIR, NO DISTRESS NOTED
--- NOTE | 2019-07-08 13:24 | NUR ---
PATIENT SLEEPING, ON ROOM AIR, NO DISTRESS NOTED
[2019-07-08 16:00] VITALS: BP 129/75
--- NOTE | 2019-07-08 16:26 | NUR ---
AT BEDSIDE, PATIENT SITTING COMFORTABLY IN BED, IN NO ACUTE DISTRESS
[2019-07-08] MEDS: INSULIN LISPRO SLIDING SCALE 100 UNITS/ML VIAL SUBQ PRN (16:46)
--- NOTE | 2019-07-08 19:05 | NUR ---
GAVE BEDSIDE REPORT TO DEVELOPMENTAL ELECTRONICS ASSEMBLER NURSE. PATIENT ENDORSED IN STABLE CONDITION
--- NOTE | 2019-07-08 19:10 | NUR ---
RECEIVED FROM AM RN IN BED SITTING UP. AWAKE AND ALERT. ORIENTED X 4. ROM X 4. CLEAR SPEECH. SPEAKS WOLOF AND SAMI WELL. DX. OF TB AND CHEST PAIN. ON ISOLATION PRECAUTION RT TB DX. AFEBRILE. CARE PLANS FOR THE NIGHT DISCUSSED WITH HIM CALL LIGHT WITH IN REACH. WITH IVF TO LFA# 22 INFUSING WELL WITH D5NS AT 75 ML/H. AFEBRILE. ENCOURAGED TO CALL FOR ANY HELP HE MAY NEED. ABLE TO USE CALL LIGHT WELL.
[2019-07-08] MEDS: SIMVASTATIN 10 MG TAB PO SCH (21:05)
--- NOTE | 2019-07-08 21:13 | NUR ---
PT. AWAKE AT THIS TIME AND LAYING DOWN IN BED. ABLE TO VERBALIZE NEEDS WELL IN LATVIAN. BLOOD SUGAR PER FINGERSTICK IS 114. NO INSULIN COVERAGE . ALL P.O. MEDICATIONS FOR 2100 TAKEN WELL. NOTICED PT. DIDN'T TOUCH HIS DINNER. ENCOURAGED TO AT LEAST EAT SOME OF IT RT WE DON'T WANT HYPOGLYCEMIA. EXPLAINED PROS AND CONS. AWARE. "OK I WILL EAT SLOWLY A LITTLE BIT" NO COUGHING NOTED AT THIS TIME. GOOD AFFECT. IVF SITE INTACT AND NO INFILTRATION.
--- NOTE | 2019-07-08 23:00 | NUR ---
PT. SLEEPING. WAKES UP EASILY WHEN CALLED BY NAME. NO COMPLAINTS DONE.
[2019-07-09] VITALS: BP_SYST 119; BP_SYST 124; BP_DIAS 70; BP_DIAS 72
--- NOTE | 2019-07-09 01:53 | NUR ---
SLEEPING. NO RESTLESSNESS.
[2019-07-09] MEDS: DEXT 5% / NACL 0.45% 1,000 ML IV SCH ×2 (02:05→12:26)
--- NOTE | 2019-07-09 02:13 | NUR ---
AWAKE AT THIS TIME. GAVE WATER WITH NO ICE REQUESTED. NO COMPLAINTS DONE . ENCOURAGED TO GO BACK TO SLEEP TO REST. "OK"
--- NOTE | 2019-07-09 05:29 | NUR ---
SLEEPING WELL THIS SHIFT. NO PAIN COMPLAINTS DONE. ISOLATION PRECAUTION OBSERVED RT TB POSITIVE. AFEBRILE.
[2019-07-09] MEDS: BLOOD GLUCOSE MONITORING 1 DEV DEV FS SCH ×4 (05:44→20:57)
--- NOTE | 2019-07-09 07:36 | NUR ---
ENDORSED TO THE NEXT RN AWAKE AND ALERT. NO COMPLAINTS DONE. NO PAIN COMPLAINTS THIS SHIFT. AFEBRILE.
--- NOTE | 2019-07-09 07:37 | NUR ---
RECEIVED REPORT FROM JIG AND FIXTURE BUILDER APPRENTICE NURSE CHUY FOR CONTINUITY OF CARE. PT IN STABLE CONDITION. RESPIRATIONS EVEN AND UNLABORED. IV INTACT AND PATENT. SAFETY MEASURES IN PLACE. BED IN LOW POSITION. CALL LIGHT AT BEDSIDE. WILL CONTINUE TO MONITOR.
[2019-07-09 08:00] VITALS: BP 146/85
[2019-07-09] MEDS: metFORMIN 850 MG TAB PO SCH ×3 (08:00→16:43)
--- NOTE | 2019-07-09 08:00 | NUR ---
PT REFUSED MORNING METFORMIN DUE TO BLOOD SUGAR BEING 148. PT INFORMED NURSE, HE DID NOT WANT HIS BLOOD SUGAR TO GO TOO LOW. PT IN STABLE CONDITION. CALL LIGHT AT BEDSIDE. BED IN LOW POSITION. WILL CONTINUE TO MONITOR.
--- NOTE | 2019-07-09 09:30 | NUR ---
GAVE ORDERED DUE MEDICATIONS AT THIS TIME. PT TOLERATED WELL. WILL CONTINUE TO MONITOR. RESPIRATIONS EVEN AND UNLABORED. BED IN LOW POSITION. CALL LIGHT AT BEDSIDE.
[2019-07-09] MEDS: ISONIAZID 100 MG TAB PO SCH (09:34)
[2019-07-09] MEDS: FAMOTIDINE 20 MG TAB PO SCH ×2 (09:34→21:00)
[2019-07-09] MEDS: LISINOPRIL 10 MG TAB PO SCH (09:34)
[2019-07-09] MEDS: PYRIDOXINE 50 MG TAB PO SCH (09:34)
[2019-07-09] MEDS: RIFAMPIN 300 MG CAP PO SCH ×2 (09:35→20:58)
[2019-07-09] MEDS: ETHAMBUTOL 400 MG TAB PO SCH (09:35)
[2019-07-09] MEDS: PYRAZINAMIDE 500 MG TAB PO SCH (09:35)
--- NOTE | 2019-07-09 11:30 | NUR ---
PT LYING IN BED TALKING ON PHONE IN STABLE CONDITION. RESPIRATIONS EVEN AND UNLABORED. BED IN LOW POSITION. CALL LIGHT AT BEDSIDE. WILL CONTINUE TO MONITOR.
[2019-07-09] MEDS: INSULIN LISPRO SLIDING SCALE 100 UNITS/ML VIAL SUBQ PRN ×2 (12:27→16:44)
[2019-07-09] MEDS: ONDANSETRON 4 MG TAB PO PRN (12:40)
--- NOTE | 2019-07-09 12:41 | NUR ---
PT C/O NAUSEA. GAVE PRN MEDICATION ZOFRAN AT THIS TIME. PT TOLERATED WELL. RESPIRATIONS EVEN AND UNLABORED. PT SITTING IN CHAIR AT BEDSIDE. CALL LIGHT AT SIDE. WILL CONTINUE TO MONITOR.
--- NOTE | 2019-07-09 14:38 | NUR ---
PT LYING IN BED SLEEPING AT THIS TIME. RESPIRATIONS EVEN AND UNLABORED. BED IN LOW POSITION. CALL LIGHT AT BEDSIDE. WILL CONTINUE TO MONITOR.
[2019-07-09 16:00] VITALS: BP 143/82
--- NOTE | 2019-07-09 16:00 | NUR ---
PT SIGNED NEW [place] ISOLATION AGREEMENT AT THIS TIME.
--- NOTE | 2019-07-09 18:00 | NUR ---
GAVE PRN MEDICATION LACTULOSE FOR CONSTIPATION. PT IN STABLE CONDITION. BED IN LOW POSITION. CALL LIGHT AT BEDSIDE. WILL CONTINUE TO MONITOR.
--- NOTE | 2019-07-09 19:12 | NUR ---
GAVE REPORT TO [employer] NURSE MARY KAY FOR CONTINUITY OF CARE. PT IN STABLE CONDITION.
--- NOTE | 2019-07-09 19:13 | NUR ---
Received endorsement from AM shift RN; patient A/Ox4, able to make needs known, [place] speaking, ambulatory. Patient is talking with family members; introduced self, updated board. No SOB or distress noted, on room air. On airborne precautions; observed and maintained. IV site on right forearm, 22 gauge, intact, running IVF at 75mL/hr. Bed in the lowest position, call light within reach. Initial assessment done. Will continue to monitor.
[2019-07-09] MEDS: SIMVASTATIN 10 MG TAB PO SCH (20:59)
--- NOTE | 2019-07-09 21:15 | NUR ---
Due meds given, tolerated well.
--- NOTE | 2019-07-09 22:30 | NUR ---
Checks made; no distress noted.
[2019-07-10] VITALS: BP 146/86
--- NOTE | 2019-07-10 00:07 | NUR ---
Vitals taken, no distress noted.
[2019-07-10] MEDS: DEXT 5% / NACL 0.45% 1,000 ML IV SCH ×2 (01:53→16:50)
--- NOTE | 2019-07-10 02:37 | NUR ---
Rounds done; patient asleep, visible chest rise and fall noted.
--- NOTE | 2019-07-10 04:20 | NUR ---
Checks made; patient asleep, visible chest rise and fall noted.
[2019-07-10] MEDS: BLOOD GLUCOSE MONITORING 1 DEV DEV FS SCH ×4 (06:06→21:43)
--- NOTE | 2019-07-10 06:35 | NUR ---
Vitals stable, due meds given. Will endorse patient to AM shift RN for continuity of care.
--- NOTE | 2019-07-10 07:15 | NUR ---
RECEIVED REPORT FROM CHEMISTRY TEACHER NURSE QUYEN FOR CONTINUITY OF CARE. PT IN STABLE CONDITION. RESPIRATIONS EVEN AND UNLABORED, ROOM AIR. IV INTACT AND PATENT. SAFETY PRECAUTIONS IN PLACE. BED IN LOW POSITION. CALL LIGHT AT BEDSIDE. WILL CONTINUE TO MONITOR.
[2019-07-10 08:00] VITALS: BP 149/89
[2019-07-10] MEDS: metFORMIN 850 MG TAB PO SCH ×3 (08:00→17:00)
--- NOTE | 2019-07-10 08:00 | NUR ---
PT REFUSED ORDERED DUE METFORMIN AT THIS TIME, DUE TO BLOOD GLUCOSE AT 148. PT IN STABLE CONDITION.
--- NOTE | 2019-07-10 09:25 | NUR ---
GAVE ORDERED DUE MEDICATIONS AT THIS TIME. PT TOLERATED WELL. RESPIRATIONS EVEN AND UNLABORED. BED IN LOW POSITION. CALL LIGHT AT BEDSIDE. WILL CONTINUE TO MONITOR.
[2019-07-10] MEDS: FAMOTIDINE 20 MG TAB PO SCH ×2 (09:28→21:44)
[2019-07-10] MEDS: PYRAZINAMIDE 500 MG TAB PO SCH (09:29)
[2019-07-10] MEDS: LISINOPRIL 10 MG TAB PO SCH (09:29)
[2019-07-10] MEDS: PYRIDOXINE 50 MG TAB PO SCH (09:29)
[2019-07-10] MEDS: ISONIAZID 100 MG TAB PO SCH (09:29)
[2019-07-10] MEDS: ETHAMBUTOL 400 MG TAB PO SCH (09:30)
--- NOTE | 2019-07-10 11:15 | NUR ---
PT LYING IN BED WATCHING TV AT THIS TIME, IN STABLE CONDITION. RESPIRATIONS EVEN AND UNLABORED. BED IN LOW POSITION. CALL LIGHT AT BEDSIDE. WILL CONTINUE TO MONITOR.
[2019-07-10] MEDS: RIFAMPIN 300 MG CAP PO SCH ×2 (12:27→21:43)
--- NOTE | 2019-07-10 12:33 | NUR ---
PT REFUSED ORDERED DUE METFORMIN AT THIS TIME, DUE TO BLOOD GLUCOSE AT 175. PT WANTS THE 2 UNITS HUMALOG ONLY. PT IN STABLE CONDITION.
[2019-07-10] MEDS: INSULIN LISPRO SLIDING SCALE 100 UNITS/ML VIAL SUBQ PRN ×2 (12:53→22:03)
--- NOTE | 2019-07-10 14:10 | NUR ---
PT LYING IN BED SLEEPING AT THIS TIME. RESPIRATIONS EVEN AND UNLABORED. BED IN LOW POSITION. CALL LIGHT AT BEDSIDE.
--- NOTE | 2019-07-10 15:31 | NUR ---
RONNI GODDARD DR. PYRAZINAMIDE 1,500 MG PO DAILY, ISONIAZID 300 MG PO DAILY, ETHAMBUTOL 1,200 MG PO DAILY.
--- NOTE | 2019-07-10 15:33 | NUR ---
07/10/19 RD FOLLOW UP COMPLETED PLEASE REFER TO NUTRITION ASSESSMENT UNDER CARE ACTIVITY FOR ESTIMATED NUTRITIONAL NEEDS. 1. CONTINUE CCHO 60 G DIET TOLERATED 2. DIET HEALTH SHAKE WILL BE ADDED TO MEALS 3. RD TO FOLLOW-UP 3-5 DAYS, MODERATE RISK LUIZ BALBUENA, RD
[2019-07-10 16:00] VITALS: BP 132/79
--- NOTE | 2019-07-10 17:00 | NUR ---
PT REFUSED ORDERED DUE MEDICATION METFORMIN, DUE TO BLOOD SUGAR 135. PT AFRAID BLOOD SUGAR WILL DROP TOO LOW. PT IN STABLE CONDITION.
--- NOTE | 2019-07-10 19:09 | NUR ---
GAVE REPORT TO SQL REPORT ANALYST NURSE MARY KAY FOR CONTINUITY OF CARE. PT IN STABLE CONDITION.
--- NOTE | 2019-07-10 19:10 | NUR ---
Received endorsement from AM shift RN; patient A/Ox4, able to make needs known, Russian speaking, ambulatory. Introduced self, updated board. No SOB or distress noted, on room air. On airborne precautions; observed and maintained. IV site on right forearm, 22 gauge, intact, running IVF at 75mL/hr. Bed in the lowest position, call light within reach. Initial assessment done. Will continue to monitor.
[2019-07-10] MEDS: SIMVASTATIN 10 MG TAB PO SCH (21:44)
--- NOTE | 2019-07-10 21:50 | NUR ---
Due meds given, tolerated well.
[2019-07-10 22:36] LABS: BILIRUBIN,DIRECT 1.8 mg/dL (0.0-0.3); TOTAL BILIRUBIN 2.3 mg/dL (0.0-1.0)
[2019-07-11] VITALS: BP 147/89
--- NOTE | 2019-07-11 00:15 | NUR ---
Vitals taken, no distress noted.
--- NOTE | 2019-07-11 02:45 | NUR ---
Checks made, patient resting comfortably.
--- NOTE | 2019-07-11 04:45 | NUR ---
Rounds done, no distress noted.
[2019-07-11] MEDS: DEXT 5% / NACL 0.45% 1,000 ML IV SCH ×2 (05:35→18:15)
[2019-07-11] MEDS: BLOOD GLUCOSE MONITORING 1 DEV DEV FS SCH ×4 (06:15→21:12)
--- NOTE | 2019-07-11 06:47 | NUR ---
Vitals stable, due meds given. Will endorse to AM shift RN for continuity of care.
--- NOTE | 2019-07-11 07:37 | NUR ---
RECEIVED REPORT FROM PIPE JEEPER RN. PT IN STABLE CONDITION AT THIS TIME. WILL MONITOR PT CLOSELY THROUGHOUT THE SHIFT.
[2019-07-11 07:42] LABS: ANION GAP 11.2 (8-16); CARBON DIOXIDE 27.8 mmol/L (21-32); CREATININE 0.8 mg/dL (0.7-1.3); TOTAL BILIRUBIN 2.6 mg/dL (0.0-1.0)
[2019-07-11 08:00] VITALS: BP 137/86
[2019-07-11] MEDS: metFORMIN 850 MG TAB PO SCH ×3 (08:00→16:39)
--- NOTE | 2019-07-11 08:56 | NUR ---
[facility] TB Nurses: Jackie Rima Documents required for discharge clearance from [facility] are as follows: 1. Discharge summary 2. Recent LFT 3. 14 days supply of TB medications All documents mentioned above needs to be faxed to Jackie/Rima [facility] for discharge clearance. Fax no# [phone]
[2019-07-11] MEDS ORDERED: ISONIAZID 100 MG TAB PO SCH (09:00)
--- NOTE | 2019-07-11 09:38 | NUR ---
ADMINISTERED MORNING MEDS TO PT. PT TOLERATED THEM WELL. PT REFUSING METFORMIN BECAUSE HE STATES THAT BLOOD SUGAR DROPS TOO LOW WITH THAT MED. WILL CONTINUE TO ROUND FREQUENTLY ON PT.
[2019-07-11] MEDS: LISINOPRIL 10 MG TAB PO SCH (09:44)
[2019-07-11] MEDS: FAMOTIDINE 20 MG TAB PO SCH ×2 (09:44→21:09)
[2019-07-11] MEDS: PYRIDOXINE 50 MG TAB PO SCH (09:45)
[2019-07-11] MEDS: RIFAMPIN 300 MG CAP PO SCH ×2 (09:45→21:09)
[2019-07-11] MEDS: PYRAZINAMIDE 500 MG TAB PO SCH (09:46)
[2019-07-11] MEDS: ETHAMBUTOL 400 MG TAB PO SCH (09:46)
--- NOTE | 2019-07-11 11:21 | NUR ---
PT RESTING IN BED. NO COMPLAINTS OF PAIN OR DISTRESS. WILL CONTINUE TO ROUND FREQUENTLY ON PT.
[2019-07-11] MEDS: INSULIN LISPRO SLIDING SCALE 100 UNITS/ML VIAL SUBQ PRN ×2 (13:00→21:53)
--- NOTE | 2019-07-11 13:22 | NUR ---
Discharge summary and current LFT Report already sent to [facility]. Waiting for the public health nurse to call back.
--- NOTE | 2019-07-11 13:32 | NUR ---
PT RESTING IN BED WATCHING TV. ALL NEEDS CURRENTLY MET. WILL CONTINUE TO ROUND FREQUENTLY ON PT.
[2019-07-11] MEDS ORDERED: PYRI-218 PO (14:37)
[2019-07-11] MEDS ORDERED: MYA400 PO (14:37)
[2019-07-11] MEDS ORDERED: PZA500 PO (14:38)
[2019-07-11] MEDS ORDERED: [UNRECOGNIZED DRUG - CODE] PO (14:38)
--- NOTE | 2019-07-11 15:36 | NUR ---
Discharge approved by the [facility]. Patient needs the following in hand at time of discharge: 1.14 days of TB medication regimen in hand 2. Surgical masks
--- NOTE | 2019-07-11 15:50 | NUR ---
PT RESTING IN BED. ALL NEEDS CURRENTLY MET.
[2019-07-11 16:00] VITALS: BP 143/86
--- NOTE | 2019-07-11 17:31 | NUR ---
PT SITTING IN BEDSIDE CHAIR WATCHING TV. ALL NEEDS CURRENTLY MET. WILL CONTINUE TO ROUND FREQUENTLY ON PT.
--- NOTE | 2019-07-11 17:54 | NUR ---
LATE ENTRY: CONTACTED INA OF [facility] AT [phone], REGARDING HOME TB MEDS. SHE STATED THAT I NEED TO CONTACT [facility]. CONTACTED [facility] AT [phone], LEFT MESSAGE TO DANICA AT EXT [phone]. RECEIVED A CALL FROM [facility] ([facility]) EXT [phone], SHE STATED THAT THEY DO NOT GIVE AUTH FOR PO MEDS. SHE SAID IT HAS TO BE FROM THE INSURANCE. CONTACTED INA OF [facility] AGAIN, SHE STATED TO CALL [facility] IF MEDICATION IS COVERED. CONTACTED [facility] AT [phone], SPOKE TO MARILYN. SHE SAID THAT ONLY PZA IS COVERED BY THE INSURANCE AND THE REST I NEED TO REQUEST FOR PRIOR AUTHORIZATION. REQUEST FOR PRIOR AUTHORIZATION FAXED TO [phone]. CONTACTED [facility] FOR CONFIRMATION OF FAX SENT. NO ANSWER AT THIS TIME. OFFICE HOURS IS [phone].
--- NOTE | 2019-07-11 19:30 | NUR ---
RECEIVED BEDSIDE REPORT FROM DAY SHIFT NURSE FOR CONTINUITY OF CARE. PT IN STABLE CONDITION. RESPIRATIONS EVEN AND UNLABORED IN ROOM AIR. IV SITE ON RFA, 22G, INTACT, PATENT AND ASYMPTOMATIC. SAFETY PRECAUTIONS IN PLACE. BOARD UPDATED. BED IN LOW POSITION. CALL LIGHT AT BEDSIDE. WILL CONTINUE TO MONITOR.
--- NOTE | 2019-07-11 19:56 | NUR ---
ENDORSED PT TO KILN REMOVER FOR CONTINUITY OF CARE. PT IN STABLE CONDITION AT THIS TIME.
[2019-07-11] MEDS: SIMVASTATIN 10 MG TAB PO SCH (21:09)
--- NOTE | 2019-07-11 21:09 | NUR ---
GIVEN PEPCID, RIMACTANE, AND ZOCOR MD ORDERED. PT TOLERATED WELL. WILL CONTINUE TO MONITOR.
--- NOTE | 2019-07-11 21:53 | NUR ---
BS 162 NOTED, GIVEN INSULIN MD ORDERED. PT TOLERATED WELL. BED IN LOW POSITION. CALL LIGHT WITHIN REACH.
--- NOTE | 2019-07-11 23:55 | NUR ---
VS CHECKED, WITHIN NORMAL RANGE. NO ACUTE DISTRESS NOTED. WILL CONTINUE TO MONITOR.
[2019-07-12] VITALS: BP 126/74
--- NOTE | 2019-07-12 02:05 | NUR ---
PT SLEEPING IN BED COMFORTABLY. NO ACUTE DISTRESS NOTED. BREATHING EVEN AND UNLABORED. BED IN LOW POSITION, CALL LIGHT WITHIN REACH. WILL CONTINUE TO MONITOR.
--- NOTE | 2019-07-12 04:45 | NUR ---
PT SLEEPING IN BED COMFORTABLY. NO ACUTE DISTRESS NOTED. BREATHING EVEN AND UNLABORED. BED IN LOW POSITION, CALL LIGHT WITHIN REACH. WILL CONTINUE TO MONITOR.
[2019-07-12] MEDS: BLOOD GLUCOSE MONITORING 1 DEV DEV FS SCH ×4 (06:28→21:24)
[2019-07-12] MEDS: INSULIN LISPRO SLIDING SCALE 100 UNITS/ML VIAL SUBQ PRN ×3 (07:01→20:55)
--- NOTE | 2019-07-12 07:01 | NUR ---
BS CHECKED, 153. INSULIN GIVEN MD ORDERED. PT TOLERATED WELL.
--- NOTE | 2019-07-12 07:15 | NUR ---
RECEIVED ENDORSEMENT FROM FRUIT INSPECTOR NURSE. PATIENT IS AAOX4, MOZAMBICAN SPEAKING. RESPIRATIONS ARE EVEN AND UNLABORED ON ROOM AIR. PATIENT DENIES ANY PAIN AT THIS TIME. LEFT WRIST 22G IV INTACT, PATENT, AND INFUSING IVF. PLAN OF CARE WAS REVIEWED WITH PATIENT, PATIENT VERBALIZED UNDERSTANDING. SAFETY MEASURES IN PLACE, CALL LIGHT WITHIN REACH.
[2019-07-12 08:00] VITALS: BP 145/78
[2019-07-12] MEDS: metFORMIN 850 MG TAB PO SCH ×4 (08:00→17:00)
[2019-07-12] MEDS: DEXT 5% / NACL 0.45% 1,000 ML IV SCH ×2 (08:17→20:55)
[2019-07-12] MEDS: PYRIDOXINE 50 MG TAB PO SCH (08:17)
[2019-07-12] MEDS: FAMOTIDINE 20 MG TAB PO SCH ×2 (08:17→20:46)
[2019-07-12] MEDS: LISINOPRIL 10 MG TAB PO SCH (08:17)
[2019-07-12] MEDS: ETHAMBUTOL 400 MG TAB PO SCH (08:18)
[2019-07-12] MEDS: PYRAZINAMIDE 500 MG TAB PO SCH (08:18)
[2019-07-12] MEDS: RIFAMPIN 300 MG CAP PO SCH ×2 (08:27→20:47)
--- NOTE | 2019-07-12 08:27 | NUR ---
ADMINISTERED SCHEDULED MEDICATIONS. PATIENT TOLERATED WELL. NO OTHER NEEDS AT THIS TIME, WILL CONTINUE TO MONITOR. Addendum: 07/12/19 at 0945 by Elle Starr RN PER PATIENT, METFORMIN MAKES HIS BLOOD GLUCOSE GO DOWN. STATES THAT EVERY TIME HE TAKES IT HE HAS TO DRINK ALOT OF JUICE BECAUSE IT DROPS TOO MUCH, THIS IS WHY HE IS REFUSING METFORMIN
--- NOTE | 2019-07-12 09:39 | NUR ---
PER DR. MORALES D/C ISONIAZID FROM DISCHARGE MEDICATIONS.
--- NOTE | 2019-07-12 10:57 | NUR ---
PATIENT RESTING IN BED. DENIES ANY PAIN. NO OTHER NEEDS AT THIS TIME, WILL CONTINUE TO MONITOR.
--- NOTE | 2019-07-12 12:06 | NUR ---
ADMINISTERED SCHEDULED MEDICATION. PROVIDED WATER TO PATIENT PER HIS REQUEST. PATIENT TOLERATED WELL. NO OTHER NEEDS AT THIS TIME. WILL CONTINUE TO MONITOR.
--- NOTE | 2019-07-12 14:00 | NUR ---
CALLED [facility] SPOKE WITH INA REGARDING THE AUTHORIZATION FOR MEDICATION. PRIOR AUTHORIZATION # [id number], CHECKED [facility] CLOSED FOR SAT SUNDAY.
--- NOTE | 2019-07-12 14:10 | NUR ---
PATIENT RESTING IN BED. DENIES ANY PAIN AT THIS TIME. NO OTHER NEEDS AT THIS TIME. WILL CONTINUE TO MONITOR.
--- NOTE | 2019-07-12 15:54 | NUR ---
CHECKED THE PATIENT FOR CLOSEST PHARMACY PT AND HIS STATED THEY USE [facility] LOCATED AT [address] AND BRANDIE CALLED [facility] SPOKE WITH THE PHARMACIST THEY DON'T HAVE THE MEDICATION AND REFER TO ANOTHER [facility]
[2019-07-12 16:00] VITALS: BP 153/79
--- NOTE | 2019-07-12 16:04 | NUR ---
CALLED [facility] AT [facility] [phone] SPOKE WITH THE PHARMACIST, RUIZ THEY DON'T HAVE PYRAZINAMIDE 1500MG IF THEY ORDER IT WON'T BE GETTING IT UNTIL SUNDAY.
--- NOTE | 2019-07-12 16:10 | NUR ---
PATIENT RESTING IN BED. FAMILY PRESENT AT BEDSIDE. EDUCATED FAMILY ON SIGNS AND SYMPTOMS OF HYPOGLYCEMIA. PATIENT VERBALIZED UNDERSTANDING. PATIENT DENIES ANY PAIN AT THIS TIME. NO OTHER NEEDS AT THIS TIME, WILL CONTINUE TO MONITOR.
--- NOTE | 2019-07-12 17:01 | NUR ---
PATIENT RESTING IN BED. OBTAINED NUMBER TO CALL HIS TO GIVE PHARMACY INFORMATION. NO OTHER NEEDS AT THIS TIME, WILL CONTINUE TO MONITOR.
--- NOTE | 2019-07-12 17:03 | NUR ---
SPOKE WITH PATIENTS , ZBIGNIEW. STATED SHE WILL NOT BE ABLE TO TRAINING AND DEVELOPMENT ASSISTANT THE MEDICATION FOR PATIENT UNTIL LATER IN THE NIGHT. GAVE HER THE PHARMACY FOR PICKUP AND LET HER KNOW THAT PATIENT WILL BE UNABLE TO BE DISCHARGED UNLESS MEDICATIONS ARE PRESENT.
--- NOTE | 2019-07-12 19:20 | NUR ---
ENDORSED TO CARGO SERVICES COORDINATOR NURSE FOR CONTINUITY OF CARE. PATIENT IS STABLE AT THIS TIME
--- NOTE | 2019-07-12 19:34 | NUR ---
RECEIVED ENDORSEMENT FROM DAY RN. PATIENT IS AAOX4, FILIPINO SPEAKING. RESPIRATIONS ARE EVEN AND UNLABORED ON ROOM AIR. PATIENT DENIES ANY PAIN AT THIS TIME. R INDEX FINGER ULCER FLORA. LEFT WRIST 22G IV INTACT, PATENT, AND INFUSING IVF. NEW ORDER FOR D/C. WILL DO DISCHARGE PAPER WORK AFTER ROUNDS. PT IS AWARE THAT REQUIRES TB MEDS BEFORE D/C SON IS GETTING PRESCRIPTION. PLAN OF CARE WAS REVIEWED WITH PATIENT, PATIENT VERBALIZED UNDERSTANDING. SAFETY MEASURES IN PLACE, CALL LIGHT WITHIN REACH.
[2019-07-12 20:00] VITALS: BP 155/80
--- NOTE | 2019-07-12 20:36 | NUR ---
PAGED DR GUTHRIE REGARDING PATIENTS SON WAS UNABLE TO GET TB MEDICATIONS FROM PHARMACY. THEY GAVE HIM A NOTE STATES: ETAMBUTOL 1200MG UNTIL 07/23, PYRAZINAMIDE 1500MG UNTIL 07/23, AND RIFAMPIN 300MG UNTIL 08/02. STATES NOTHING WE CAN DO TODAY. WILL ENDORSE TO DAY RN TOMORROW TO F/U WITH DR ERICKSON. AND V BLOCK SAW OPERATOR WILL LOOK FOR DIFFERENT PHARMACY TO GET MEDICATION. PT MUST REMAIN IN HOSPITAL UNTIL PRESCRIPTIONS AVAILABLE. PT AND SON VERBALIZED UNDERSTANDING.
[2019-07-12] MEDS: SIMVASTATIN 10 MG TAB PO SCH (20:46)
--- NOTE | 2019-07-12 20:46 | NUR ---
CAROLYNN MEDICATIONS WERE GIVEN. ALL QUESTIONS AND CONCERNS ANSWERED. CALL LIGHT IS WITHIN REACH. WILL CONTINUE TO MONITOR.
--- NOTE | 2019-07-13 | NUR ---
VITAL SIGNS ARE WITHIN NORMAL LIMITS. ALL NEEDS MET AT THIS TIME. CALL LIGHT IS WITHIN REACH. WILL CONTINUE TO MONITOR.
--- NOTE | 2019-07-13 02:15 | NUR ---
PATIENT IS SLEEPING COMFORTABLY IN BED. CHEST RISE AND FALL. CALL LIGHT IS WITHIN REACH. WILL CONTINUE TO MONITOR.
--- NOTE | 2019-07-13 04:00 | NUR ---
PT SLEEPING RESPIRATIONS ARE EQUAL AND UNLABORED. CALL LIGHT IS WITHIN REACH. WILL CONTINUE TO MONITOR.
--- NOTE | 2019-07-13 06:00 | NUR ---
BLOOD SUGAR IS 148 NO COVERAGE NEEDED. ALL NEEDS MET AT THIS TIME.
[2019-07-13] MEDS: BLOOD GLUCOSE MONITORING 1 DEV DEV FS SCH ×4 (06:01→21:16)
--- NOTE | 2019-07-13 07:19 | NUR ---
GAVE BEDSIDE REPORT TO DAY RN. PT ENDORSED IN STABLE CONDITION.
--- NOTE | 2019-07-13 07:20 | NUR ---
RECEIVED ENDORSEMENT FROM CRISIS COUNSELOR NURSE. PATIENT IS AAOX4, ITALIAN SPEAKING. RESPIRATIONS ARE EVEN AND UNLABORED ON ROOM AIR. PATIENT DENIES ANY PAIN AT THIS TIME. LEFT AC 18G IV INTACT, PATENT, AND INFUSING IVF. PLAN OF CARE WAS REVIEWED WITH PATIENT, PATIENT VERBALIZED UNDERSTANDING. SAFETY MEASURES IN PLACE, CALL LIGHT WITHIN REACH.
[2019-07-13 08:00] VITALS: BP 150/92
[2019-07-13] MEDS: metFORMIN 850 MG TAB PO SCH ×3 (08:00→17:00)
[2019-07-13] MEDS: PYRIDOXINE 50 MG TAB PO SCH (08:44)
[2019-07-13] MEDS: FAMOTIDINE 20 MG TAB PO SCH ×2 (08:44→21:13)
[2019-07-13] MEDS: LISINOPRIL 10 MG TAB PO SCH (08:44)
[2019-07-13] MEDS: RIFAMPIN 300 MG CAP PO SCH ×2 (08:45→21:13)
[2019-07-13] MEDS: ETHAMBUTOL 400 MG TAB PO SCH (08:45)
[2019-07-13] MEDS: PYRAZINAMIDE 500 MG TAB PO SCH (08:46)
--- NOTE | 2019-07-13 09:36 | NUR ---
PATIENT RESTING IN BED. NO SIGNS OF DISTRESS NOTED. NO OTHER NEEDS AT THIS TIME, WILL CONTINUE TO MONITOR.
[2019-07-13] MEDS: DEXT 5% / NACL 0.45% 1,000 ML IV SCH (10:35)
--- NOTE | 2019-07-13 11:00 | NUR ---
CONTACTED [facility] IN [place] (# [phone]) REGARDING PT'S TAKE HOME TB MEDS AVAILABILITY. PER SAMMY (PHARMACIST) THE REASON WHY 2 TB MEDS WILL BE AVAILABLE ON 07/23/2019 AND 1 TB MED WILL BE AVAILABLE ON 08/02/2019 BECAUSE THE PT'S PRESCRIPTIONS WERE PREVIOUSLY SENT TO OTHER PHARMACIES AND WAS BEING BLOCKED BY THE INSURANCE. SAMMY STATED THAT SOON THE INSURANCE ABLE TO BACK OUT THE CLAIM THEN THEY CAN DISPENSE THE MEDS. DR. ERICKSON ON ROUNDS AND RUBIO GORDON SUP NOTIFIED.
[2019-07-13] MEDS: INSULIN LISPRO SLIDING SCALE 100 UNITS/ML VIAL SUBQ PRN ×2 (11:54→17:05)
--- NOTE | 2019-07-13 11:54 | NUR ---
ADMINISTERED SCHEDULED MEDICATIONS. PATIENT TOLERATED WELL. PATIENT DENIES ANY PAIN AT THIS TIME. NO OTHER NEEDS AT THIS TIME, WILL CONTINUE TO MONITOR.
--- NOTE | 2019-07-13 13:45 | NUR ---
CONTACTED INA FROM [facility] (#[phone]), NOTIFIED HER REGARDING PT'S TB HOME MEDS ISSUE. INA STATED SHE WILL CALL ME BACK IF THERE IS A PERSON CLIENT SERVICES SPECIALIST FOR [facility] TO UNBLOCK THE CLAIM FROM PREVIOUS PHARMACY/PHARMACIES SO [facility] CAN DISPENSE THE MEDS. DANIEL ASSIGNED
--- NOTE | 2019-07-13 13:57 | NUR ---
PATIENT RESTING IN BED. NO SIGNS OF DISTRESS NOTED. NO OTHER NEEDS AT THIS TIME, WILL CONTINUE TO MONITOR.
--- NOTE | 2019-07-13 14:23 | NUR ---
INA FROM [facility] CALLED BACK STATED THAT SHE E-MAILED [facility] REGARDING THE ISSUE AND WILL CALL BACK FOR UPDATE.
--- NOTE | 2019-07-13 15:01 | NUR ---
PATIENT RESTING IN BED. FAMILY IS PRESENT AT BEDSIDE. NO SIGNS OF DISTRESS NOTED. NO OTHER NEEDS AT THIS TIME. WILL CONTINUE TO MONITOR.
[2019-07-13 16:00] VITALS: BP 132/79
--- NOTE | 2019-07-13 17:05 | NUR ---
ADMINISTERED SCHEDULED MEDICATION. PATIENT TOLERATED WELL. DENIES ANY PAIN. NO OTHER NEEDS AT THIS TIME. WILL CONTINUE TO MONITOR.
--- NOTE | 2019-07-13 19:25 | NUR ---
PATIENT SITTING IN BED WATCHING TV. PATIENT DENIES ANY PAIN AT THIS TIME. NO OTHER NEEDS AT THIS TIME, WILL CONTINUE TO MONITOR.
[2019-07-13 20:00] VITALS: BP 145/78
[2019-07-13] MEDS: SIMVASTATIN 10 MG TAB PO SCH (21:13)
--- NOTE | 2019-07-13 21:16 | NUR ---
ADMINISTERED SCHEDULED MEDICATIONS. PATIENT TOLERATED WELL. PATIENT DENIES ANY PAIN. NO OTHER NEEDS AT THIS TIME, WILL CONTINUE TO MONITOR.
--- NOTE | 2019-07-13 22:12 | NUR ---
PATIENT RESTING IN BED. NO SIGNS OF DISTRESS NOTED AT THIS TIME. NO OTHER NEEDS AT THIS TIME, WILL CONTINUE TO MONITOR.
--- NOTE | 2019-07-13 23:10 | NUR ---
ENDORSED TO MEDIA CLERK NURSE FOR CONTINUITY OF CARE. PATIENT IS STABLE AT THIS TIME.
--- NOTE | 2019-07-13 23:15 | NUR ---
RECIEVED REPORT FORM KYM RN AT BEDSIDE FOR CONTINUITY OF CARE, PT IN STABLE CONDITION.
--- NOTE | 2019-07-14 | NUR ---
PT IN BED NO S/S OF PAIN OR DISTRESS NOTED. FLUIDS RUNNING ORDERED. V/S FOLLOWS T 99.4 P 90 R 18 B/P 136/81 02 96% ON ROOM AIR. OFFERED PT COOLING MEASURES BUT PT DECLINED.
[2019-07-14] MEDS: DEXT 5% / NACL 0.45% 1,000 ML IV SCH ×2 (00:37→12:55)
[2019-07-14] MEDS: BLOOD GLUCOSE MONITORING 1 DEV DEV FS SCH ×2 (05:40→11:43)
[2019-07-14] MEDS: INSULIN LISPRO SLIDING SCALE 100 UNITS/ML VIAL SUBQ PRN (05:49)
--- NOTE | 2019-07-14 06:00 | NUR ---
PT IN BED FINGERSTICK IS 182, PT GIVEN 2 UNITS OF HUMALOG COVERAGE. ALL AIRBORNE PRECAUTIONS IN PLACE, PT IN STABLE CONDITION.
--- NOTE | 2019-07-14 07:30 | NUR ---
RECEIVED BEDSIDE REPORT FROM TIN WHIZ MACHINE OPERATOR NURSE FOR CONTINUITY OF CARE. PATIENT AWAKE AND RESTING AT THIS TIME. PATIENT IS AAOX4, SPEAKS LITHUANIAN AND ABLE TO UNDERSTAND DIVEHI. PATIENT IS ABLE TO MAKE NEEDS KNOWN AND FOLLOW COMMAND. MOOD IS CALM AND COOPERATIVE. RESPIRATION EVEN AND UNLABORED ON RA. DENIED PAIN. NO SIGN OF DISTRESS NOTED. IV ON L WRIST 22G, CLEAN AND INTACT, INFUSING PER MD ORDER. PATIENT IS CONTINENT AND ABLE TO AMBULATE WITH STEADY GAIT. DISCUSSED PLAN OF CARE WITH PATIENT AND PATIENT VERBALIZED UNDERSTANDING. SAFETY MEASURES IN PLACE. BED IN LOW POSITION AND CALL LIGHT WITHIN REACH. INSTRUCTED PATIENT TO USE THE CALL LIGHT FOR ANY ASSISTANCE AND PATIENT WAS AWARE.
[2019-07-14 08:00] VITALS: BP 137/76
[2019-07-14] MEDS: metFORMIN 850 MG TAB PO SCH ×2 (08:12→11:43)
--- NOTE | 2019-07-14 08:12 | NUR ---
ADMINISTERED MED PER MD ORDER, PATIENT TOLERATED WELL. MED EDUCATION PROVIDED TO PATIENT AND PATIENT VERBALIZED UNDERSTANDING. PATIENT AWAKE AND WATCHING ON BED. SAFETY MEASURES IN PLACE. BED IN LOW POSITION AND CALL LIGHT WITHIN REACH. INSTRUCTED PATIENT TO USE THE CALL LIGHT FOR ANY ASSISTANCE AND PATIENT WAS AWARE.
[2019-07-14] MEDS: PYRIDOXINE 50 MG TAB PO SCH (09:23)
[2019-07-14] MEDS: FAMOTIDINE 20 MG TAB PO SCH (09:24)
[2019-07-14] MEDS: LISINOPRIL 10 MG TAB PO SCH (09:24)
[2019-07-14] MEDS: RIFAMPIN 300 MG CAP PO SCH (09:25)
[2019-07-14] MEDS: PYRAZINAMIDE 500 MG TAB PO SCH (09:25)
[2019-07-14] MEDS: ETHAMBUTOL 400 MG TAB PO SCH (09:26)
--- NOTE | 2019-07-14 09:26 | NUR ---
ADMINISTERED MEDS PER MD ORDER, PATIENT TOLERATED WELL. MEDS EDUCATION PROVIDED TO PATIENT AND PATIENT VERBALIZED UNDERSTANDING. PATIENT AWAKE AND WATCHING TV ON BED. DENIED PAIN AND DIZZINESS. NO SIGNS OF DISTRESS NOTED. SAFETY MEASURES IN PLACE. BED IN LOW POSITION AND CALL LIGHT WITHIN REACH. INSTRUCTED PATIENT TO USE THE CALL LIGHT FOR ANY ASSISTANCE AND PATIENT WAS AWARE.
--- NOTE | 2019-07-14 10:26 | NUR ---
CALLED [facility] [phone] SPOKE WITH THE PHARMACIST FRANCISCO ,STATED THAT THEY HAVE ALL THE MEDICATION AND FAMILY MEMBER CAN CARE MGR THE MEDS. CALLED PT'S SON BRANDAN [phone] NOTIFIED HIM AND PROVIDE THE [facility] ADDRESS, BRANDAN STATED WILL GO NOW TO CARE MGR THE MEDS. CAILIN RABAGO F/U
--- NOTE | 2019-07-14 11:24 | NUR ---
PATIENT AWAKE AND WATCHING TV ON BED AT THIS TIME. RESPIRATION LIZABETH AND UNLABORED ON RA. DENIED PAIN AND DIZZINESS. NO SIGNS OF DISTRESS NOTED. IVF INFUSING PER MD ORDER. SAFETY MEASURES IN PLACE. BED IN LOW POSITION AND CALL LIGHT WITHIN REACH. INSTRUCTED PATIENT TO USE THE CALL LIGHT FOR ANY ASSISTANCE AND PATIENT WAS AWARE. AIRBORNE PRECAUTION IN PLACE AND SIGN POSTED.
--- NOTE | 2019-07-14 11:43 | NUR ---
CHECKED BLOOD GLUCOSE AND ADMINISTERED SCHEDULED MED, MED EDUCATION PROVIDED TO PATIENT. PATIENT SAID OK. PATIENT AWAKE AND WATCHING TV ON BED AT THIS TIME. NO SIGNS OF DISTRESS NOTED. SAFETY MEASURES IN PLACE. BED IN LOW POSITION AND CALL LIGHT WITHIN REACH. INSTRUCTED PATIENT TO USE THE CALL LIGHT FOR ANY ASSISTANCE AND PATIENT WAS AWARE.
--- NOTE | 2019-07-14 12:00 | NUR ---
BRANDAN PATIENT'S SON BROUGHT PRESCRIPTION MEDICATION, VERBALIZED UNDERSTANDING OF ADMINISTRATION.
--- NOTE | 2019-07-14 12:20 | NUR ---
PUBLIC HEALTH NURSE JENA IS TALKING TO PATIENT AND SON BRANDAN AT BEDSIDE. NO SIGNS OF DISTRESS NOTED. SAFETY MEASURES IN PLACE. Addendum: 07/14/19 at 1338 by Eunice Booker RN FRANCHESKA
--- NOTE | 2019-07-14 13:30 | NUR ---
PUBLIC HEALTH NURSE [place] REQUESTING THE MEDICATION RIFAMPIN 600 MG PO BID IS A WRONG ORDER, CLARIFIED WITH DR ERICKSON AND DR TORRES , IT HAS TO BE DAILY . I CALLED [facility] [phone] SPOKE WITH MARY PHARMACIST WE CAN EDUCATE PATIENT AND FAMILY MEMBER TO TAKE 2 TABS DAILY FOR 28 DAYS AND DISCARD THE REST. EXPLAIN BRANDAN REGALADO'S SON HE VERBALIZED UNDERSTANDING. [place] PUBLIC HEALTH NURSE STATED SINCE THEY ARE FOLLOWING THE PATIENT SHE WILL MONITOR THE MEDICATION .
--- NOTE | 2019-07-14 13:33 | NUR ---
PATIENT AWAKE AND TALKING TO SON BRANDAN AT BEDSIDE. NO SIGNS OF DISTRESS NOTED. AWAITING FOR BLOOD TEST TO CLEAR FROM [facility] FOR DC. PER FRANCHESKA FROM [facility], PATIENT IS OK TO DISCHARGE AFTER THE BLOOD TEST. SHE WILL FOLLOW UP WITH THE RESULT. SAFETY MEASURES IN PLACE. BED IN LOW POSITION AND CALL LIGHT WITHIN REACH. INSTRUCTED PATIENT TO USE THE CALL LIGHT FOR ANY ASSISTANCE AND PATIENT WAS AWARE.
--- NOTE | 2019-07-14 13:38 | NUR ---
2 PUBLIC HEALTH NURSES IN THE UNIT TALKING TO THE PATIENT REGARDING MEDICATION CLARIFICATION. CALLED DR TORRES AND DISCUSSED WHY INH MEDS IS DISCONTINUED. PER DR TORRES BECAUSE OF HEPATIC TOXICITY ALT AND AST LEVEL IS HIGH AND STOPPED THE INH. PUBLIC HEALTH NURSE REQUESTED THE BLOOD WORK TO BE DONE, ORDERED THE BMP AND URIC ACID ORDERED STAT AND WILL F/U WITH THE RESULT.
--- NOTE | 2019-07-14 13:45 | NUR ---
INFORMED PATIENT THAT HE MAY DISCHARGE AFTER BLOOD LAB DRAW FROM HIM. PER PATIENT, HE WANTS TO FINISH HIS [place]UNC TRAY AND THEN SHOWER BEFORE HE GOES HOME. PATIENT'S SON BRANDAN IS BY BEDSIDE. NO SIGNS O DISTRESS NOTED. SAFETY MEASURES IN PLACE.
--- NOTE | 2019-07-14 14:25 | NUR ---
PATIENT IS RESTING ON BED AND TALKING TO SON BRANDAN AT BEDSIDE AT THIS TIME. NO SIGNS OF DISTRESS NOTED. PER PATIENT, HE WANTS TO TAKE A SHOWER IN A BIT. PROVIDED SHOWER SUPPLIES.
[2019-07-14 14:38] LABS: ANION GAP 11.2 (8-16); CREATININE 0.7 mg/dL (0.7-1.3); POTASSIUM 4.2 mmol/L (3.5-5.1)
--- NOTE | 2019-07-14 14:50 | NUR ---
PATIENT IS TAKING A SHOWER AT THIS TIME. NO SIGNS OF DISTRESS NOTED. SON BRANDAN IS IN PATENT'S ROOM.
--- NOTE | 2019-07-14 15:25 | NUR ---
DISCHARGE INSTRUCTION PROVIDED TO PATIENT AND PATIENT'S SON BRANDAN AT BEDSIDE. EDUCATED PATIENT AND BRANDAN ON FOLLOW UP WITH MD, SEEK MEDICAL HELP IN CASE OF MEDICAL EMERGENCY,DISEASE MANAGEMENT, MEDICATIONS REGIMENS AND SIDE EFFECTS, DIET REGIMEN, AND TB MANAGEMENT AT HOME/PUBLIC SETTING, PATIENT AND SON VERBALIZED UNDERSTANDING. ANSWERED ALL PATIENT'S AND SON BRANDAN'S QUESTIONS. REMOVED ALL ARM BANDS. DC IV AND CANNULA INTACT, NO BLEEDING AT IV SITE. PATIENT CHECKED ALL THE CABINETS AND TOOK ALL HIS BELONGINGS. PROVIDED SURGICAL AND N95 MASKS FOR PATIENT. RETURNED ALL PATIENT'S HOME MEDS FROM PHARMACY, BRANDAN CONFIRMED AND VERIFIED ALL MEDS. ESCORTED PATIENT TO THE FRONT LOBBY WITH WHEEL CHAIR. PATIENT IS GOING TO DISCHARGE AT THIS TIME ACCOMPANY BY SIVA GIPSON. PATIENT IS IN STABLE CONDITION.
[2019-07-14 16:43] LABS: ASPARTATE AMINOTRANSFERASE 35 U/L (15-37)
== END 2019-07-14 15:25 | disposition home or self-care (01) | DRG 137 ==
LOC: MED 08:30 → MTU 12:14 → OBSVTOIN 06-24 15:49
PROVIDERS: ADMIT Internal Medicine; ATTEND Internal Medicine
DX: A15.0 Tuberculosis of lung (principal); E11.52 Type 2 diabetes mellitus with diabetic peripheral angiopathy with gangrene; E44.0 Moderate protein-calorie malnutrition; E87.8 Other disorders of electrolyte and fluid balance, not elsewhere classified; E11.65 Type 2 diabetes mellitus with hyperglycemia; E87.1 Hypo-osmolality and hyponatremia; I10 Essential (primary) hypertension; E78.5 Hyperlipidemia, unspecified; L98.498 Non-pressure chronic ulcer of skin of other sites with other specified severity; Y95 Nosocomial condition; Z68.22 Body mass index [BMI] 22.0-22.9, adult
CPT/HCPCS: 96361; 96365; 99285; G0378; 36415; 71045; 71260; 73130; 80048; 80053; 80076; 80202; 81003; 82248; 82948; 83605; 83880; 84450; 84460; 84484; 84550; 85025; 85610; 85730; 87040; 87070; 87081; 87086; 87116; 87190; 87205; 87206; 89220; 93005; J1815; J2543; J3370; J7060; Q0092; Q0162; Q9967